=== PATIENT | female | born 1945 | race Caucasian/White ===

== ENCOUNTER 2019-03-21 14:25 | Emergency (ER) | payer MEDICARE, OTHER ==
[~2019-03-21] VITALS: Ht 180.3 cm; Wt 68.0 kg
--- NOTE | 2019-03-21 14:37 | ED General ---
General Stated Complaint: ALLERGIC REACTION History of Present Illness Date Seen by Provider: March 21, 2019 Time Seen by Provider: 14:30 Initial Comments 73-year-old female presents with concerns for an allergic reaction. Patient reports she was at work when it happened. Patient states that she "stating she got some pineapple" on her. They've maybe the patient had on them. She reports that she is "allergic to pineapple" however she does state that she's been blood tests and did not have any allergies. Patient reports she felt like her throat started swelling she had real anxious and or sign of rabies. She reports that when this normally happens she uses her inhaler and it is better. Patient denies any chest pain, nausea, vomiting, headache. Patient states that she feels better now. Patient was given epi, Solu-Medrol and Benadryl in the field by EMS. Allergies and Home Medications Allergies Coded Allergies: coconut (Verified Allergy, Unknown, 03/21/19) pineapple (Verified Allergy, Unknown, 03/21/19) strawberry (Verified Allergy, Unknown, 03/21/19) Patient Home Medication List Home Medication List Reviewed: Yes Review of Systems Review of Systems Constitutional: No chills, No diaphoresis EENTM: see HPI Respiratory: see HPI Cardiovascular: no symptoms reported Gastrointestinal: no symptoms reported Genitourinary: no symptoms reported Musculoskeletal: no symptoms reported Skin: No rash Psychiatric/Neurological: Denies No Symptoms Reported Past Xnfqqui-Mlaugd-Hqezgh Hx Past Med/Social Hx: Reviewed Nursing Past Med/Soc Hx Physical Exam Vital Signs Vital Signs - First Documented 03/21/19 14:39 Temp 96.5 Pulse 87 Resp 18 B/P (MAP) 146/59 (88) O2 Delivery Room Air Capillary Refill : Height, Weight, BMI Height: '" Weight: lbs. oz. kg; BMI Method: General Appearance: No Apparent Distress, WD/WN Eyes: Bilateral Eye Normal Inspection, Bilateral Eye PERRL HEENT: PERRL/EOMI, TMs Normal, Normal ENT Inspection Neck: Full Range of Motion Respiratory: Chest Non Tender, Lungs Clear, Normal Breath Sounds Cardiovascular: Regular Rate, Rhythm, No Edema Gastrointestinal: No Organomegaly Back: No CVA Tenderness Neurologic/Psychiatric: Alert, Oriented x3 Focused Exam Lactate Level 03/21/19 14:35: Lactic Acid Level 1.65 Lactic Acid Level Laboratory Tests Test 03/21/19 14:35 Lactic Acid Level 1.65 MMOL/L (0.50-2.00) Progress/Results/Core Measures Suspected Sepsis SIRS Temperature: Pulse: Respiratory Rate: Laboratory Tests 03/21/19 14:35: White Blood Count 4.9 Blood Pressure / Mean: 03/21/19 14:35: Lactic Acid Level 1.65 Laboratory Tests 03/21/19 14:35: Creatinine 1.11, Platelet Count 194, Total Bilirubin 0.3 Results/Orders Lab Results Laboratory Tests Test 03/21/19 14:35 03/21/19 14:41 Range/Units White Blood Count 4.9 4.3-11.0 10^3/uL Red Blood Count 4.97 4.35-5.85 10^6/uL Hemoglobin 14.6 11.5-16.0 G/DL Hematocrit 47 35-52 % Mean Corpuscular Volume 94 80-99 FL Mean Corpuscular Hemoglobin 29 25-34 PG Mean Corpuscular Hemoglobin Concent 31 L 32-36 G/DL Red Cell Distribution Width 13.7 10.0-14.5 % Platelet Count 194 130-400 10^3/uL Mean Platelet Volume 9.6 7.4-10.4 FL Neutrophils (%) (Auto) 52 42-75 % Lymphocytes (%) (Auto) 35 12-44 % Monocytes (%) (Auto) 12 0-12 % Eosinophils (%) (Auto) 1 0-10 % Basophils (%) (Auto) 0 0-10 % Neutrophils # (Auto) 2.5 1.8-7.8 X 10^3 Lymphocytes # (Auto) 1.7 1.0-4.0 X 10^3 Monocytes # (Auto) 0.6 0.0-1.0 X 10^3 Eosinophils # (Auto) 0.1 0.0-0.3 10^3/uL Basophils # (Auto) 0.0 0.0-0.1 10^3/uL Sodium Level 140 135-145 MMOL/L Potassium Level 4.0 3.6-5.0 MMOL/L Chloride Level 101 98-107 MMOL/L Carbon Dioxide Level 24 21-32 MMOL/L Anion Gap 15 H 5-14 MMOL/L Blood Urea Nitrogen 17 7-18 MG/DL Creatinine 1.11 0.60-1.30 MG/DL Estimat Glomerular Filtration Rate 48 BUN/Creatinine Ratio 15 Glucose Level 126 H 70-105 MG/DL Lactic Acid Level 1.65 0.50-2.00 MMOL/L Calcium Level 8.6 8.5-10.1 MG/DL Corrected Calcium 8.6 8.5-10.1 MG/DL Total Bilirubin 0.3 0.1-1.0 MG/DL Aspartate Amino Transf (AST/SGOT) 19 5-34 U/L Alanine Aminotransferase (ALT/SGPT) 11 0-55 U/L Troponin T 7 <=10 NG/L Total Protein 6.8 6.4-8.2 GM/DL Albumin 4.0 3.2-4.5 GM/DL Glucometer 125 H 70-110 MG/DL My Orders Orders - CHIP THOMPSON DO Cbc With Automated Diff (03/21/19 14:31) Comprehensive Metabolic Panel (03/21/19 14:31) Lactic Acid Analyzer (03/21/19 14:31) Ua Culture If Indicated (03/21/19 14:31) Accucheck Stat ONCE (03/21/19 14:31) Troponin T (03/21/19 14:31) Ekg Tracing (03/21/19 14:31) Hs C Reactive Protein (03/21/19 14:35) Acetaminophen Tablet/Caplet (Tylenol T (03/21/19 15:45) Medications Given in ED Current Medications Medications Dose Ordered Sig/Mary Route Start Time Stop Time Status Last Admin Dose Admin Acetaminophen 650 mg ONCE ONCE PO 03/21/19 15:45 03/21/19 15:46 DC 03/21/19 15:39 650 MG Vital Signs/I&O 03/21/19 14:39 Temp 96.5 Pulse 87 Resp 18 B/P (MAP) 146/59 (88) O2 Delivery Room Air Capillary Refill : Progress Note : Progress Note Patient remained stable with normal vital signs throughout her stay. Patient had no acute findings on EKG or labs. I will discharge patient home in stable condition. She should follow-up with her primary care physician as needed. Return to the ER if symptoms worsen. ECG Initial ECG Impression Date: March 21, 2019 Initial ECG Impression Time: 14:29 Initial ECG Rate: 79 Initial ECG Rhythm: Normal Sinus Initial ECG Intervals: Normal Initial ECG Impression: Nonspecific Changes Departure Impression Primary Impression: Allergic reaction Qualified Codes: T78.40XA - Allergy, unspecified, initial encounter Disposition: HOME, SELF-CARE Condition: Stable Departure-Patient Inst. Patient Instructions: Food Allergy, Anaphylaxis (DC) Work/School Note: Work Release Form Date Seen in the Emergency Department: March 21, 2019 Return to Work: March 23, 2019 CHIP THOMPSON DO March 21, 2019 14:37
[2019-03-21 15:24] LABS: HEMATOCRIT 47 % (35-52); HEMOGLOBIN 14.6 G/DL (11.5-16.0); MEAN CORPUSCULAR HEMOGLOBIN 29 PG (25-34); MEAN CORPUSCULAR HGB CONC 31 G/DL (32-36); MEAN CORPUSCULAR VOLUME 94 FL (80-99); MEAN PLATELET VOLUME 9.6 FL (7.4-10.4); NEUTROPHILS % (AUTO) 52 % (42-75); PLATELET COUNT 194 10^3/uL (130-400); RED CELL DISTRIBUTION WIDTH 13.7 % (10.0-14.5); WHITE BLOOD COUNT 4.9 10^3/uL (4.3-11.0)
[2019-03-21 15:25] LABS: BASOPHILS % (AUTO) 0 % (0-10); EOSINOPHILS # (AUTO) 0.1 10^3/uL (0.0-0.3); EOSINOPHILS % (AUTO) 1 % (0-10); LYMPHOCYTES # (AUTO) 1.7 X 10^3 (1.0-4.0); LYMPHOCYTES % (AUTO) 35 % (12-44); MONOCYTES # (AUTO) 0.6 X 10^3 (0.0-1.0); MONOCYTES % (AUTO) 12 % (0-12); NEUTROPHILS # (AUTO) 2.5 X 10^3 (1.8-7.8)
[2019-03-21 15:34] LABS: BILIRUBIN,TOTAL 0.3 MG/DL (0.1-1.0); CALCIUM 8.6 MG/DL (8.5-10.1); CREATININE SERUM 1.11 MG/DL (0.60-1.30); TOTAL PROTEIN 6.8 GM/DL (6.4-8.2)
[2019-03-21] MEDS ORDERED: ACETAMINOPHEN 325 MG TABLET PO ONE (15:45)
[2019-03-21 16:20] VITALS: BP 123/82
== END 2019-03-21 16:09 | disposition home or self-care (01) ==
LOC: ER FS 14:26
DX: T78.40XA Allergy, unspecified, initial encounter (principal); Z91.018 Allergy to other foods
CPT/HCPCS: 36415; 80053; 82962; 83605; 84484; 85025; 86141; 93005

== ENCOUNTER → 2020-09-21 | Outpatient (CLI) | payer MEDICARE, OTHER | LOC: CARD 10:50 | PROVIDERS: ATTEND Internal Medicine Cardiovascular Disease | DX: E78.2 Mixed hyperlipidemia (principal); I36.1 Nonrheumatic tricuspid (valve) insufficiency; I10 Essential (primary) hypertension; R07.89 Other chest pain | CPT/HCPCS: 93306 ==

== ENCOUNTER → 2020-09-27 | Outpatient (CLI) | payer MEDICARE, OTHER ==
[~2020-09-27] VITALS: Ht 180 cm; Wt 72.0 kg
[~2020-09-27] MED LIST: CATHETER FLUSH 10 ML SYR IV PRN; REGADENOSON 0.4 MG/5 ML SYR (LEXISCAN) IV ONE
[2020-09-27 08:52] VITALS: BP 147/91
--- NOTE | 2020-09-28 08:18 | Cardiology Stress Test Report ---
Stress Test Report Date of Procedure/Referring: Date of Procedure: Sep 27, 2020 PCP Elvin De Dios MD Admitting Physician Indications: Chest pain Baseline Heart Rate: 65 Baseline Blood Pressure: Blood Pressure Systolic: 147 Blood Pressure Diastolic: 91 Baseline Vitals Vital Signs Date Time Temp Pulse Resp B/P (MAP) Pulse Ox O2 Delivery O2 Flow Rate FiO2 09/27/20 08:52 65 147/91 (109) 98 Baseline EKG: Baseline EKG: normal sinus rhythm Summary After explaining the procedure to the patient, she signed a consent and then brought to the stress nuclear laboratory. Patient received 0.4 mg Lexiscan for stress test, ECG, heart rate and blood pressure were monitored continuously. Resting and stress dose of radio tracer were injected, imaging was acquired and reviewed in short axis, horizontal long axis and vertical long axis views. TID: 1.05 SSS: 6 SDS: 6 EF: 70 1. Patient tolerated Lexiscan well 2. Extracardiac attenuation affecting the quality of the images, there is questionable mild decrease uptake at the mid to apical inferior wall and inferoseptum with mild reversibility, probably due to the increased intestinal uptake 3. Normal left ventricular size, normal contractility, EF 70 percent ELVIN DE DIOS MD Sep 28, 2020 08:18
== END ==
LOC: CARD 07:30
PROVIDERS: ATTEND Internal Medicine Cardiovascular Disease
DX: R07.89 Other chest pain (principal); I10 Essential (primary) hypertension; R06.00 Dyspnea, unspecified; E78.2 Mixed hyperlipidemia
CPT/HCPCS: 78452; 93017; A9502

== ENCOUNTER 2020-10-13 09:00 | Day surgery (SDC) | payer MEDICARE, OTHER ==
[2020-10-13] VITALS (14 sets, daily range): BP systolic 118–150; BP diastolic 54–78
[~2020-10-13] VITALS: Ht 180 cm; Wt 73.0 kg
[2020-10-13 07:12] LABS: HEMOGLOBIN 13.4 g/dL (11.5-16.0); MEAN PLATELET VOLUME 9.6 fL (9.0-12.2); WHITE BLOOD COUNT 4.7 10^3/uL (4.3-11.0)
[2020-10-13 07:21] LABS: PROTHROMBIN TIME PATIENT 13.3 SEC (12.2-14.7)
[2020-10-13 07:30] LABS: ALBUMIN 4.1 GM/DL (3.2-4.5); BILIRUBIN,TOTAL 0.4 MG/DL (0.1-1.0); CALCIUM 8.8 MG/DL (8.5-10.1); CREATININE SERUM 1.11 MG/DL (0.60-1.30); POTASSIUM 4.5 MMOL/L (3.6-5.0)
--- NOTE | 2020-10-13 08:09 | Diagnostic Imaging Report ---
Indication: Dyspnea on exertion Findings: The lungs are clear. The heart size is within normal limits. There is no failure pattern, effusion or pneumothorax. IMPRESSION: No acute appearing abnormality. Dictated by: Dictated on workstation # [id number]
[~2020-10-13 09:00] MED LIST changes: +ASCO-262 PO; +ASPI-1238 PO; +C,E,1CAP2 PO; -CATHETER FLUSH 10 ML SYR IV PRN; +HEParin (CATH LAB) 2,000 ML IV ONE; +IBUP-1780 PO; +LIDOCAINE 1% INJ 20 ML 20 ML VIAL ONE; +LISI10TA2 PO; +NS IV 1000 ML 1,000 ML IV SCH; +NS IV 1000 ML 1,000 ML ONE; +PANT40TA52 PO; -REGADENOSON 0.4 MG/5 ML SYR (LEXISCAN) IV ONE; +TEMA30CA PO; +TRAZ150T72 PO; +VNL75T PO
--- NOTE | 2020-10-13 09:20 | NUR ---
SPOKE WITH THE PT (SHE HAD MOST OF HER HOME MEDS) AND CALLED [facility] IN [place] TO COMPLETE THE MED REC LISINOPRIL 10MG WAS LAST FILLED 09-10-2018 #90/90DS- ACCORDING TO THE PT, HAD STOPPED THIS MED DUE TO HER BP DROPPING TO LOW (SHE THINKS IT WAS OVER A YEAR AGO) HOWEVER RECENTLY PTS BP HAD BEEN RUNNING HIGH SO THE PT STARTED TAKING AGAIN. PT SAYS SHE HAS A SCRIPT FOR AN EPI-PEN AND AN ALBUTEROL INHALER, WHEN I CALLED THE PHARMACY THEY HAVE NOT FILLED EITHER OF THESE SINCE 2014. DUE TO THE PAST DUE FILL I DID NOT INCLUDE THESE ON THE MED REC FILL DATES: 07-13-2020 IBUPROFEN 800MG #90 07-19-2020 TRAZODONE 150MG #90/90DS 09-13-2020 VENLAFAXINE 75MG #180/90DS 09-15-2020 TEMAZEPAM 30MG #30/30DS OTC MEDS: OCUVITE VIT C ASPIRIN 81MG
--- NOTE | 2020-10-13 10:25 | Cardiac Procedure Note-CS/ASA ---
Pre-Procedure Note Pre-Op Procedure Note H&P Reviewed The H&P was reviewed, patient examined and no changes noted. Date H&P Reviewed: Oct 13, 2020 Time H&P Reviewed: 10:25 Conscious Sedation Pre-Proced Time 10:25 ASA Score 3 For ASA 3 and 4: Consider anesthesia and medical clearance. Also, for patients with a history of failed moderate sedation consider anesthesia. Airway Lungs Heart ASA score ASA 1: a normal healthy patient ASA 2: a patient with a mild systemic disease (mid diabetes, controlled hypertension, obesity x ASA 3: a patient with a severe systemic disease that limits activity (angina, COPD, prior Myocardial infarction) ASA 4: a patient with an incapacitating disease that is a constant threat to life (CHF, renal failure) ASA 5: a moribund patient not expected to survive 24 hrs. (ruptured aneurysm) ASA 6: a declared brain- patient whose organs are being harvested. For emergent operations, add the letter E after the classification Mallampati Classification Grade 3 Sedation Plan Analgesia, Amnesia, Plan communicated to team members, Discussed options with patient/fam, Discussed risks with patient/fam The patient is an appropriate candidate to undergo the planned procedure, sedation, and anesthesia. The patient immediately re-assessed prior to indication. ELVIN MANDEL MD Oct 13, 2020 10:25
[2020-10-13] MEDS ORDERED: NITRO DRIP 25000 MCG/D5W 250 ML IV ONE (11:29)
[2020-10-13] MEDS ORDERED: VERAPAMIL 5 MG/2 ML (CALAN) VIAL IV ONE (11:29)
[2020-10-13] MEDS ORDERED: MIDAZOLAM 5 MG/5 ML (VERSED) VIAL ONE (11:29)
[2020-10-13] MEDS ORDERED: HEParin 1000 UNIT/ML (10ML VIAL) FOR BOLUS ONE (11:29)
[2020-10-13] MEDS ORDERED: fentaNYL INJECTION 100 MCG/2 ML AMP ONE (11:29)
[2020-10-13] MEDS ORDERED: ASPIRIN 325 MG (5 GR) TABLET ONE (12:36)
[2020-10-13] MEDS ORDERED: TICAGRELOR 90 MG TABLET (BRILINTA) PO ONE (12:36)
[2020-10-13] MEDS ORDERED: PANTOPRAZOLE 40 MG (PROTONIX) TAB PO PRN (12:45)
--- NOTE | 2020-10-13 12:46 | Cardiac Cath Report ---
Cardiac Cath Report Physician (s)/Optical Systems Engineer (s) Physician ELVIN MANDEL MD Pre-Procedure Diagnosis Pre-Procedure Diagnosis: coronary artery disease Post-Procedure Note Procedure Start Date: Oct 13, 2020 Name of Procedure: Left heart catheterization Stent to the LAD Findings/Procedure Note PROCEDURE NOTE: 75-year-old lady with history of hypertension, hyperlipidemia, had an abnormal stress test with anterior wall ischemia, scheduled for cardiac catheterization. After explaining the procedure to the patient, all pros and cons were explained, all questions were answered. The patient signed the consent and then she was placed on the cardiac catheterization laboratory. Groin was prepped SL fashion local anesthesia was used. Sheath placed in the right radial artery, [place] catheter was advanced to the left ventricular cavity, left ventriculogram was done back with measuring the pressure to the aortotomy advanced in the left main coronary artery and angiogram was done then turned to the right coronary artery and angiogram to the right coronary system was done. Next Patient has severe stenosis in the mid LAD. Attempts to intubate with a EBU guide, I used FL 3.5, advanced to the left main then advanced a wire through the LAD. Primary stenting using Peggy 2.5 x 18 mm expanded to 2.65 mm with excellent results. Postintervention angiogram showed no complication At the end of the procedure the sheath was removed. Vascular band was used FINDINGS: Hemodynamics LV 99/7, end-diastolic pressure of 7 Aorta 95/50 mean of 67 ANATOMY: Left Main is free of obstructive disease Left Anterior Descending has 70-80 percent mid LAD stenosis successful primary stenting using Peggy 2.5 x 18 mm expanded to 2.65 mm with excellent results Left Circumflex has mild to moderate disease nonobstructive disease Right Coronory Artery has moderate disease in the midportion nonobstructive disease LV Gram was not done, pressure was measured CONCLUSION: 1. Severe mid LAD stenosis successful primary stenting using Peggy 2.5 x 18 mm expanded to 2.65 mm with excellent results 2. Moderate stenosis in the mid right coronary artery nonobstructive disease, mild disease in the circumflex system 3. Normal left ventricular end-diastolic pressure DISCUSSION AND RECOMMENDATION: Patient was started on aspirin and Brilinta. Continue to maximize medical therapy, added Lipitor due to hyperlipidemia Anesthesia Type: Conscious Sedation Estimated blood loss (mL): 25 ml Contrast Amount: 80 ml Total Radiation Dose: 306 mGy Post-Procedure Diagnosis Post-operative diagnosis: Chest pain Coronary artery disease Hypertension Hyperlipidemia ELVIN MANDEL MD Oct 13, 2020 12:46
[2020-10-13] MEDS: NS IV 1000 ML 1,000 ML IV SCH (13:00)
[2020-10-13] MEDS: TICAGRELOR 90 MG TABLET (BRILINTA) PO SCH (20:01)
[2020-10-13] MEDS: VENlafaxine 75 MG (EFFEXOR) TAB PO SCH (20:01)
[2020-10-13] MEDS ORDERED: traZODone 150 MG (DESYREL) TABLET PO SCH (21:00)
[2020-10-13] MEDS ORDERED: TEMAZEPAM 15 MG (RESTORIL) CAP PO SCH (21:00)
[2020-10-13] MEDS ORDERED: ASPIRIN E.C. 81 MG (ECOTRIN) TAB PO SCH (21:00)
[2020-10-14] VITALS: BP 137/78
[2020-10-14] MEDS: NS IV 1000 ML 1,000 ML IV SCH ×2 (01:36→08:40)
[2020-10-14 03:33] LABS: HEMOGLOBIN 12.6 g/dL (11.5-16.0); MEAN PLATELET VOLUME 9.7 fL (9.0-12.2); WHITE BLOOD COUNT 5.3 10^3/uL (4.3-11.0)
[2020-10-14 03:47] LABS: ALBUMIN 3.4 GM/DL (3.2-4.5); POTASSIUM 4.5 MMOL/L (3.6-5.0)
[2020-10-14 03:51] LABS: BILIRUBIN,TOTAL 0.5 MG/DL (0.1-1.0)
[2020-10-14 03:53] LABS: CREATININE SERUM 1.13 MG/DL (0.60-1.30)
[2020-10-14 04:00] VITALS: BP 125/72
[2020-10-14 08:00] VITALS: BP 118/65
[2020-10-14] MEDS ORDERED: lisINopril 10 MG (PRINIVIL) TABLET PO SCH (09:00)
[2020-10-14] MEDS: TICAGRELOR 90 MG TABLET (BRILINTA) PO SCH ×2 (09:00→11:00)
[2020-10-14] MEDS: VENlafaxine 75 MG (EFFEXOR) TAB PO SCH (09:05)
--- NOTE | 2020-10-14 09:09 | Cardiology Progress Note ---
Subjective Date Seen by Provider: Oct 14, 2020 Time Seen by Provider: 09:47 Subjective/Events-last exam Patient is laying down in bed, feeling well. No chest pain. Catheterization site is healing well Review of Systems General: No Chills, No Night Sweats, No Fatigue, No Malaise, No Appetite, No Other HEENT: No Head Aches, No Visual Changes, No Eye Pain, No Ear Pain, No Dysphasia, No Sinus Congestion, No Post Nasal Drip, No Sore Throat, No Other Pulmonary: No Dyspnea, No Cough, No Pleuritic Chest Pain, No Other Cardiovascular: No: Chest Pain, Palpitations, Orthopnea, Paroxysmal Noc. Dyspnea, Edema, Lt Headedness, Other Objective-Cardiology Exam Last Set of Vital Signs Vital Signs Capillary Refill : Less Than 3 Seconds I&O Intake and Output 10/14/20 00:00 Intake Total 1500 ml Balance 1500 ml Intake Oral 500 ml IV Total 1000 ml # Voids 2 General: Alert, Oriented X3, Cooperative HEENT: Atraumatic, PERRLA Neck: Supple, No JVD, No Thyromegaly Lungs: Clear to Auscultation, Normal Air Movement Heart: Regular Rate, Normal S1, Normal S2, No Murmurs Abdomen: Normal Bowel Sounds, Soft, No Tenderness, No Hepatosplenomegaly, No Ma sses Extremities: No Clubbing, No Cyanosis, No Edema, Normal Pulses, No Tender ness/Swelling Skin: No Rashes, No Breakdown, No Significant Lesion Neuro: Normal Gait, Normal Speech, Strength at 5/5 X4 Ext, Normal Tone, Sensation Intact Psych/Mental Status: Mental Status NL, Mood NL Results Lab Laboratory Tests 10/14/20 02:58 A/P-Cardiology Admission Diagnosis Coronary artery disease Hypertension Hyperlipidemia Assessment/Plan Coronary artery disease, status post stenting to LAD, educated on taking aspirin and Brilinta next 1. Severe mid LAD stenosis successful primary stenting using Peggy 2.5 x 18 mm expanded to 2.65 mm with excellent results 2. Moderate stenosis in the mid right coronary artery nonobstructive disease, mild disease in the circumflex system 3. Normal left ventricular end-diastolic pressure Hypertension, continue to monitor blood pressure next Hyperlipidemia, on Lipitor, monitor lipids ELVIN MANDEL MD Oct 14, 2020 9:09 am
[2020-10-14] MEDS ORDERED: ATOR10TA66 PO (09:11)
[2020-10-14] MEDS ORDERED: TICA90TA PO (09:11)
--- NOTE | 2020-10-14 09:11 | Discharge Inst-Post CATH ---
Discharge Inst-CATH/EP Problems Reviewed?: Yes Post Cardiac Cath/EP D/C Inst Follow Up/Plan Appointment with Dr. MANDEL's office in 2 weeks <b>CARDIAC CATH/EP PROCEDURE DISCHARGE INSTRUCTIONS</b> ACTIVITY * Go Home directly and rest. * Limit activity of the leg (or wrist if it was used) for 7 days including aerobics, swimming, jogging, bicycling, etc. * Restrict stair-climbing for 7 days if possible, if not, climb up with your non-cath leg, then bring together on the same step. * Avoid lifting, pushing, pulling or excessive movement of the affected extremity for 7 days. * Customary sexual activity may be resumed after 2 days-use caution not to use a position that strains or causes pain to the affected extremity. * No driving for 24 hours. * NO SMOKING. * Avoid straining for bowel movements for 7 days. * Gentle walking on level ground is allowed. * Returning to work will depend on the type of procedure and the results. Your doctor will discuss this with you. CALL YOUR DOCTOR FOR ANY OF THE FOLLOWING: *If bleeding from the puncture site occurs- Apply gentle pressure to site with clean cloth and call your doctor or EMS. * If a knot or lump forms under the skin, increases in size, or causes pain. * If bruising appears to be worsening or moving further down your leg instead of disappearing. * Temperature above 101 F. CARE OF YOUR GROIN INCISION; * Bruising or purple discoloration of the skin near the puncture site is common. * You may shower only, no bathtub bathing for 5 days. Be careful to avoid slipping as your leg may feel stiff. * If a closure device was used on your femoral artery, please see the attached guide regarding care of the device and your leg. * Leave dressing on FOR 24 hours. CARE OF YOUR WRIST INCISION; * Bruising or purple discoloration of the skin near the puncture site is common. * You may shower. * DO NOT submerge wrist. * Leave dressing on FOR 24 hours. ELVIN MANDEL MD Oct 14, 2020 9:11 am
== END 2020-10-14 12:00 | disposition home or self-care (01) ==
LOC: CATH 09:00 → CSD 13:27 → CATH 10-14 12:00
PROVIDERS: ATTEND Internal Medicine Cardiovascular Disease
DX: I25.10 Atherosclerotic heart disease of native coronary artery without angina pectoris (principal); I10 Essential (primary) hypertension; E78.2 Mixed hyperlipidemia; I65.23 Occlusion and stenosis of bilateral carotid arteries; R94.39 Abnormal result of other cardiovascular function study; Z79.899 Other long term (current) drug therapy; Z79.82 Long term (current) use of aspirin
CPT/HCPCS: 71045; 80053 ×2; 80061; 85027 ×2; 85610; 85730; 87081; 93458; C1769; C1874; C1887 ×2; C1894; C9600; 36415; 93005

== ENCOUNTER 2020-11-25 14:56 | Observation (INO) | payer MEDICARE, OTHER ==
[~2020-11-25] VITALS: Ht 180.3 cm; Wt 71.3 kg
[2020-11-25] VITALS (10 sets, daily range): BP systolic 96–139; BP diastolic 56–87
[~2020-11-25 14:56] MED LIST changes: +ATOR10TA66 PO; -HEParin (CATH LAB) 2,000 ML IV ONE; -LIDOCAINE 1% INJ 20 ML 20 ML VIAL ONE; -NS IV 1000 ML 1,000 ML IV SCH; -NS IV 1000 ML 1,000 ML ONE; +TICA90TA PO
[2020-11-25] MEDS ORDERED: ASPIRIN 81 MG CHEW (CHILDREN'S ASA) PO STA (15:23)
[2020-11-25] MEDS ORDERED: ONDANSETRON 4 MG/2 ML (SDV) Z0FRAN IVP ONE (15:30)
[2020-11-25] MEDS ORDERED: NS IV 1000 ML 1,000 ML IV SCH (15:30)
[2020-11-25] MEDS ORDERED: fentaNYL INJECTION 100 MCG/2 ML AMP IVP ONE (15:30)
--- NOTE | 2020-11-25 15:38 | ED Chest Pain ---
General Chief Complaint: Chest Pain Stated Complaint: SHOULDER BLADE PAIN;NAUSEA Source: patient History of Present Illness Date Seen by Provider: Nov 25, 2020 Time Seen by Provider: 15:08 Initial Comments 75-year-old female presenting with substernal chest pain going into her back. She states that this feels similar to when she had to have stents placed No . She also has some mild nausea with this. It started around noon is been off and on since then. She states that she was working at [email or web address] when this started. She was not doing anything strenuous or different than normal. She has not missed any doses of her medications. She does not feel any different with exertion or movement. Rest did not seem to make a difference the pain either. Allergies and Home Medications Allergies Coded Allergies: coconut (Verified Allergy, Unknown, 03/21/19) pineapple (Verified Allergy, Unknown, 03/21/19) strawberry (Verified Allergy, Unknown, 03/21/19) Home Medications Ascorbate Calcium 500 Mg Tablet, 500 MG PO DAILY, (Reported) Aspirin 81 Mg Tablet.dr, 81 MG PO HS, (Reported) Atorvastatin Calcium 10 Mg Tablet, 10 MG PO HS Prescribed by: ELVNI MANDEL on 10/14/20910 C,E,Zinc,Copper 24/Om3/Lut/Katie 1 Each Capsule, 1 EACH PO DAILY, (Reported) Ibuprofen 800 Mg Tablet, 800 MG PO TID PRN for PAIN-MILD, (Reported) Lisinopril 10 Mg Tablet, 10 MG PO DAILY, (Reported) LAST FILLED 09-10-2018 #90/90 DAY SUPPLY Pantoprazole Sodium 40 Mg Tablet.dr, 40 MG PO DAILY PRN for HEARTBURN, (Reported) Temazepam 30 Mg Capsule, 30 MG PO HS, (Reported) Ticagrelor 90 Mg Tablet, 90 MG PO BID Prescribed by: ELVIN MANDEL on 10/14/20 09 Trazodone HCl 150 Mg Tablet, 150 MG PO HS, (Reported) Venlafaxine HCl 75 Mg Tab, 75 MG PO BID, (Reported) Patient Home Medication List Home Medication List Reviewed: Yes Review of Systems Review of Systems Constitutional: No chills, No fever EENTM: No Symptoms Reported Respiratory: No Symptoms Reported Cardiovascular: See HPI Gastrointestinal: See HPI Genitourinary: No Symptoms Reported Musculoskeletal: no symptoms reported Skin: no symptoms reported Psychiatric/Neurological: Denies Headache, Denies Numbness, Denies Paresthesia Past Rzqwxhz-Lrtshl-Xftidg Hx Past Med/Social Hx: Reviewed Nursing Past Med/Soc Hx Patient Social History Type Used: Cigarettes 2nd Hand Smoke Exposure: No Recent Foreign Travel: No Contact w/Someone Who Travel: No Recent Hopitalizations: No Immunizations Up To Date Date of Pneumonia Vaccine: Mar 13, 2020 Date of Influenza Vaccine: Mar 13, 2020 Seasonal Allergies Seasonal Allergies: No Past Medical History Surgeries: Yes (CONE SECTION 1974, ARMS BILAT CARPAL TUNNEL) Respiratory: No Currently Using CPAP: No Currently Using BIPAP: No Cardiac: No High Cholesterol, Hypertension Neurological: Yes Vertigo Genitourinary: No Gastrointestinal: No Musculoskeletal: Yes (CARPAL TUNNEL) Endocrine: No HEENT: No Cancer: No Psychosocial: Yes Anxiety Blood Disorders: No Physical Exam Vital Signs Vital Signs - First Documented 11/25/20 15:00 Temp 36.5 Pulse 79 Resp 18 B/P (MAP) 101/54 (70) Pulse Ox 99 O2 Delivery Room Air Capillary Refill : Height, Weight, BMI Height: 5'11.00" Weight: 150lbs. oz. 68.075695om; 22.53 BMI Method:Stated General Appearance: No Apparent Distress, WD/WN HEENT: PERRL/EOMI, Normal ENT Inspection Neck: Full Range of Motion, Normal Inspection, Non Tender, Supple; No Carotid Bruit Respiratory: Chest Non Tender, Lungs Clear, Normal Breath Sounds, No Accessory Muscle Use, No Respiratory Distress Cardiovascular: Regular Rate, Rhythm, Normal Peripheral Pulses Gastrointestinal: Normal Bowel Sounds, No Pulsatile Mass, Non Tender, Soft Extremity: Normal Capillary Refill, No Pedal Edema Neurologic/Psychiatric: Alert, Oriented x3 Skin: Warm/Dry Progress/Results/Core Measures Results/Orders Lab Results Laboratory Tests Test 11/25/20 15:21 Range/Units White Blood Count 6.2 4.3-11.0 10^3/uL Red Blood Count 4.37 4.35-5.85 10^6/uL Hemoglobin 13.2 11.5-16.0 G/DL Hematocrit 41 35-52 % Mean Corpuscular Volume 93 80-99 FL Mean Corpuscular Hemoglobin 30 25-34 PG Mean Corpuscular Hemoglobin Concent 33 32-36 G/DL Red Cell Distribution Width 14.3 10.0-14.5 % Platelet Count 309 130-400 10^3/uL Mean Platelet Volume 9.4 7.4-10.4 FL Immature Granulocyte % (Auto) 0 % Neutrophils (%) (Auto) 67 42-75 % Lymphocytes (%) (Auto) 21 12-44 % Monocytes (%) (Auto) 11 0-12 % Eosinophils (%) (Auto) 0 0-10 % Basophils (%) (Auto) 0 0-10 % Neutrophils # (Auto) 4.2 1.8-7.8 X 10^3 Lymphocytes # (Auto) 1.3 1.0-4.0 X 10^3 Monocytes # (Auto) 0.7 0.0-1.0 X 10^3 Eosinophils # (Auto) 0.0 0.0-0.3 10^3/uL Basophils # (Auto) 0.0 0.0-0.1 10^3/uL Immature Granulocyte # (Auto) 0.0 0.0-0.1 10^3/uL Prothrombin Time 13.0 12.2-14.7 SEC INR Comment 1.0 0.8-1.4 Activated Partial Thromboplast Time 28 24-35 SEC Sodium Level 139 135-145 MMOL/L Potassium Level 4.0 3.6-5.0 MMOL/L Chloride Level 102 98-107 MMOL/L Carbon Dioxide Level 24 21-32 MMOL/L Anion Gap 13 5-14 MMOL/L Blood Urea Nitrogen 19 H 7-18 MG/DL Creatinine 1.24 0.60-1.30 MG/DL Estimat Glomerular Filtration Rate 42 BUN/Creatinine Ratio 15 Glucose Level 105 70-105 MG/DL Calcium Level 9.4 8.5-10.1 MG/DL Corrected Calcium 9.1 8.5-10.1 MG/DL Magnesium Level 2.1 1.6-2.4 MG/DL Total Bilirubin 0.5 0.1-1.0 MG/DL Aspartate Amino Transf (AST/SGOT) 19 5-34 U/L Alanine Aminotransferase (ALT/SGPT) 10 0-55 U/L Alkaline Phosphatase 72 40-136 U/L Troponin I 0.30 <0.30 NG/ML Pro-B-Type Natriuretic Peptide 114.1 H <75.0 PG/ML Total Protein 7.3 6.4-8.2 GM/DL Albumin 4.4 3.2-4.5 GM/DL Lipase 33 8-78 U/L My Orders Orders - DEWAYNE DEL RIO MD Cbc With Automated Diff (11/25/20 15:12) Magnesium (11/25/20 15:12) Chest 1 View Ap/Pa Only (11/25/20 15:12) Ekg Tracing (11/25/20 15:12) Comprehensive Metabolic Panel (11/25/20 15:12) Protime With Inr (11/25/20 15:12) Partial Thromboplastin Time (11/25/20 15:12) Monitor-Rhythm Ecg Trace Only (11/25/20 15:12) Ed Iv/Invasive Line Start (11/25/20 15:12) Lipase (11/25/20 15:12) Troponin I Fs (11/25/20 15:12) Probnp Fs (11/25/20 15:12) Ns Iv 1000 Ml (Sodium Chloride 0.9%) (11/25/20 15:30) Fentanyl Injection (Sublimaze Injection (11/25/20 15:30) Ondansetron Injection (Zofran Injectio (11/25/20 15:30) Aspirin Chewable Tablet (Baby Aspirin Ch (11/25/20 15:23) Fentanyl Injection (Sublimaze Injection (11/25/20 16:19) Metoprolol Succinate (Xl) Tab (Toprol Xl (11/25/20 17:29) Medications Given in ED Current Medications Medications Dose Ordered Sig/Mary Route Start Time Stop Time Status Last Admin Dose Admin Fentanyl Citrate 25 mcg ONCE ONCE IVP 11/25/20 15:30 11/25/20 15:31 DC 11/25/20 15:30 25 MCG Ondansetron HCl 4 mg ONCE ONCE IVP 11/25/20 15:30 11/25/20 15:31 DC 11/25/20 15:30 4 MG Vital Signs/I&O 11/25/20 11/25/20 11/25/20 15:00 15:49 17:20 Temp 36.5 36.2 Pulse 79 90 Resp 18 18 B/P (MAP) 101/54 (70) 125/70 Pulse Ox 99 98 O2 Delivery Room Air Room Air Room Air Progress Progress Note #1: Progress Note initial electrocardiogram does not show any acute significant abnormality compared to her prior tracing. 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 Will give aspirin here and check labs as well as chest x-ray. Give IV fluids to help with her borderline low blood pressure. Give fentanyl 25 g anytime as needed for chest pain. Progress Note #2: Progress Note on recheck her pain was down to 2 or 3 after the initial treatment. Her labs appeared stable without acute significant abnormality. Her initial troponin was <0.3. CXR is clear of acute process. Will repeat Fentanyl 25 mcg and check with [facility] and Cardiology about admit for cardiac rule out with her having complaint of pain similar to Oct 13, 2020. Progress Note #3: Time: 16:56 Progress Note discussed with Dr. Workman for the [facility] service and she was agreeable to admitting the patient overnight for observation to do serial cardiac enzymes. She did request having cardiology be where the patient make sure that he was okay with the admission as well. At [address] Coleman for cardiology and he stated he would see the patient in consult and to make sure she had aspirin, beta sam and blood thinner ordered. Will add on a dose of metoprolol 25 mg, continue brilinta and aspirin. Initial ECG Impression Date: Nov 25, 2020 Initial ECG Impression Time: 15:07 Initial ECG Rate: 77 Initial ECG Rhythm: Normal Sinus Comment normal sinus rhythm with a heart rate of [address] interval [address] elevation. QT interval 402 ms with a QTc interval 455 ms. Appears similar to tracing from 2019. Diagnostic Imaging Diagonstic Imaging: Xray Plain Films/CT/US/NM/MRI: chest Comments [facility] [place], [place] NAME: HALINA NGUYEN [facility] REC#: [id number] PT STATUS: REG ER : 1945 PHYSICIAN: DEWAYNE DEL RIO MD ADMIT DATE: 11/25/20/ER FS Signed Date of Exam:11/25/20 CHEST 1 VIEW AP/PA ONLY INDICATION: chest pain COMPARISON: 10/13/2020 FINDINGS: Single frontal view of the chest demonstrates normal heart size and pulmonary vascularity. The lungs are well aerated and clear. No large pleural effusion or pneumothorax is seen. The visualized osseous structures show no acute abnormalities. IMPRESSION: 1. No acute cardiopulmonary process. Dictated by: Dictated on workstation # [id number] Dict: 11/25/20 1600 Trans: 11/25/20 1630 CVB [id number] Interpreted by: JOSE CHRISTENSEN MD Electronically signed by: JOSE CHRISTENSEN MD 11/25/20 1630 Departure Communication (Admissions) Time/Spoke to Admitting Phy: 16:56 D/w Dr. Workman and she was willing to take pt for cardiac rule out but wanted to make sure the hotel operation manager was aware and see if they are ok with it. Time/Spoke to Consulting Phy: 17:02 D/w Dr. Coleman for cardiology and he was agreeable to having the pt get a cardiac rule out. He wanted to make sure she continues on aspirin, brilinta, beta sam. Impression Primary Impression: Substernal chest pain Disposition: 30 STILL A PATIENT Condition: Stable Admissions Decision to Admit Reason: Admit from ER (General) Decision to Admit/Date: Nov 25, 2020 Time/Decision to Admit Time: 16:56 Departure-Patient Inst. Referrals: NO,LOCAL PHYSICIAN (PCP/Family) Primary Care Physician DEWAYNE DEL RIO MD Nov 25, 2020 15:38
[2020-11-25 16:00] LABS: BILIRUBIN,TOTAL 0.5 MG/DL (0.1-1.0); CALCIUM 9.4 MG/DL (8.5-10.1); CREATININE SERUM 1.24 MG/DL (0.60-1.30); MAGNESIUM 2.1 MG/DL (1.6-2.4)
[2020-11-25 16:01] LABS: ALBUMIN 4.4 GM/DL (3.2-4.5); TOTAL PROTEIN 7.3 GM/DL (6.4-8.2)
--- NOTE | 2020-11-25 16:02 | Diagnostic Imaging Report ---
INDICATION: chest pain COMPARISON: 10/13/2020 FINDINGS: Single frontal view of the chest demonstrates normal heart size and pulmonary vascularity. The lungs are well aerated and clear. No large pleural effusion or pneumothorax is seen. The visualized osseous structures show no acute abnormalities. IMPRESSION: 1. No acute cardiopulmonary process. Dictated by: Dictated on workstation # [id number]
[2020-11-25] MEDS ORDERED: fentaNYL INJECTION 100 MCG/2 ML AMP IVP STA (16:19)
[2020-11-25 16:40] LABS: WHITE BLOOD COUNT 6.2 10^3/uL (4.3-11.0)
[2020-11-25 16:41] LABS: HEMATOCRIT 41 % (35-52); HEMOGLOBIN 13.2 G/DL (11.5-16.0); MEAN CORPUSCULAR HEMOGLOBIN 30 PG (25-34); MEAN CORPUSCULAR HGB CONC 33 G/DL (32-36); MEAN CORPUSCULAR VOLUME 93 FL (80-99); PLATELET COUNT 309 10^3/uL (130-400)
[2020-11-25 16:42] LABS: BASOPHILS % (AUTO) 0 % (0-10); EOSINOPHILS % (AUTO) 0 % (0-10); LYMPHOCYTES # (AUTO) 1.3 X 10^3 (1.0-4.0); LYMPHOCYTES % (AUTO) 21 % (12-44); MEAN PLATELET VOLUME 9.4 FL (7.4-10.4); MONOCYTES # (AUTO) 0.7 X 10^3 (0.0-1.0); MONOCYTES % (AUTO) 11 % (0-12); NEUTROPHILS # (AUTO) 4.2 X 10^3 (1.8-7.8); NEUTROPHILS % (AUTO) 67 % (42-75)
--- NOTE | 2020-11-25 18:12 | NUR ---
ATEMPTED REPORT, NO ANSWER.
--- NOTE | 2020-11-25 19:20 | NUR ---
HALINA NGUYEN admitted to room 417-1, with an admitting diagnosis of CP, on 11/25/20 from ED via EMS, accompanied by STAFF.HALINA NGUYEN introduced to surroundings, call light, bed controls, phone, TV, temperature control, lights, meal times, smoking policy, visitor policy, side rail policy, bathrooms and showers. Patient Rights given to patient in the handbook. HALINA NGUYEN verbalizes understanding that [facility] is not responsible for the loss or damage to any personal effects or valuables that are kept in the patients posession during their hospitalization. The following HALINA NGUYEN verbalizes understanding of Interdisciplinary Patient Education. Patient and/or family were informed about the Rapid Response Team and its purpose.
[2020-11-25] MEDS ORDERED: morphine INJ 4 MG/ML 1 ML (VIAL/SYRINGE) IV PRN (19:30)
[2020-11-25] MEDS ORDERED: CATHETER FLUSH 10 ML SYR IV PRN (19:30)
[2020-11-25] MEDS ORDERED: NITROGLYCERIN 0.4 MG SL TABS BTL 25'S SL PRN (19:30)
[2020-11-25] MEDS ORDERED: ONDANSETRON 4 MG/2 ML (SDV) Z0FRAN IVP PRN (19:30)
[2020-11-25] MEDS: NS IV 1000 ML 1,000 ML IV SCH (20:40)
[2020-11-25] MEDS: TICAGRELOR 90 MG TABLET (BRILINTA) PO SCH (20:40)
[2020-11-26] VITALS: BP 97/58
[2020-11-26 04:00] VITALS: BP 96/54
[2020-11-26 05:37] LABS: TRIGLYCERIDES 77 MG/DL (<150); VLDL CHOLESTEROL 15 MG/DL (5-40)
[2020-11-26 05:42] LABS: CHOLESTEROL 134 MG/DL (< 200)
[2020-11-26 05:43] LABS: HDL CHOLESTEROL 63 MG/DL (40-60)
[2020-11-26 08:00] VITALS: BP 117/69
[2020-11-26] MEDS ORDERED: ASPIRIN E.C. 81 MG (ECOTRIN) TAB PO SCH (09:00)
--- NOTE | 2020-11-26 09:17 | History & Physical ---
LORNE MARTE III MED STUDENT 11/26/20 0917: History of Present Illness History of Present Illness Reason for visit/HPI Pt is a 75 yo female w/ known history of CAD s/p stent placement in LAD, HTN, and HLD who presented to the ER on 11/25/20 due to worsening chest pain. She describes the pain as a sharp, stabbing pain rated 10/10 on pain at its most severe. She notes that is started in her midscapular area and radiated towards her chest, but not to neck or shoulders. She endorsed shortness of breath, diaphoresis, nausea and weakness when it was at its max pain. She relates this to similar pain she experience prior to receiving a stent in her LAD on 10/13/20 for severe stenosis. 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 She is unsure if it was related to her heart or more anxiety related. The pain lasted for about 6 hours, though the severity of the pain decreased once she was in the ER and getting fentanyl patches. Today, she states that she no longer feels any chest pain or shortness of breath. still feeling nauseous, but again unsure if this could be related to anxiety or not. She wants to know what she can do to prevent this from happening again Date of Admission Nov 25, 2020 at 19:03 Date Seen by a Provider: Nov 26, 2020 Time Seen by a Provider: 09:45 I consulted on this patient on 11/26/20 09:11 Attending Physician Ta Workman MD Admitting Physician Shreyas Abbott MD Consult Allergies and Home Medications Allergies Coded Allergies: coconut (Verified Allergy, Unknown, 03/21/19) pineapple (Verified Allergy, Unknown, 03/21/19) strawberry (Verified Allergy, Unknown, 03/21/19) Home Medications Acetaminophen 500 Mg Tablet, 1,000 MG PO Q6H PRN for PAIN-MILD (1-4), (Reported) Ascorbate Calcium 500 Mg Tablet, 500 MG PO DAILY, (Reported) Aspirin 81 Mg Tablet.dr, 81 MG PO DAILY, (Reported) Atorvastatin Calcium 10 Mg Tablet, 10 MG PO HS, (Reported) C,E,Zinc,Copper 24/Om3/Lut/Katie 1 Each Capsule, 1 EACH PO DAILY, (Reported) Lisinopril 10 Mg Tablet, 10 MG PO HS, (Reported) LAST FILLED 09-10-2018 #90/90 DAY SUPPLY Pantoprazole Sodium 40 Mg Tablet.dr, 40 MG PO DAILY PRN for HEARTBURN, (Reporte d) Temazepam 30 Mg Capsule, 30 MG PO HS, (Reported) Ticagrelor 90 Mg Tablet, 90 MG PO DAILY, (Reported) Trazodone HCl 150 Mg Tablet, 150 MG PO HS, (Reported) Venlafaxine HCl 75 Mg Tab, 75 MG PO BID, (Reported) Patient Home Medication List Home Medication List Reviewed: Yes Past Srmhbpp-Uclqsl-Omdggc Hx Patient Social History Number of Children: 1 Number of living children: 0 Employed/Student: employed Alcohol Use: Denies Use Recreational Drug Use: Yes Drug of Choice: meth Smoking Status: Current Everyday Smoker Type Used: Cigarettes 2nd Hand Smoke Exposure: No Recent Foreign Travel: No Contact w/other who traveled: No Recent Hopitalizations: No Recent Infectious Disease Expo: No Immunizations Up To Date Date of Pneumonia Vaccine: Mar 13, 2020 Date of Influenza Vaccine: Mar 13, 2021 Seasonal Allergies Seasonal Allergies: No Surgeries Yes (CONE SECTION 1974, ARMS BILAT CARPAL TUNNEL) Respiratory No Currently Using CPAP: No Currently Using BIPAP: No Cardiovascular Yes Coronary Artery Disease (stent placement in LAD 10/13/2020), High Cholesterol, Hypertension Neurological Yes Vertigo Genitourinary No Gastrointestinal No Musculoskeletal Yes (CARPAL TUNNEL) Endocrine History of Endocrine Disorders: No HEENT History of HEENT Disorders: No Cancer No Psychosocial History of Psychiatric Problem: Yes Behavioral Health Disorders: Anxiety Integumentary History of Skin or Integumenta: No Blood Transfusions History of Blood Disorders: No Family Medical History Significant Family History: Heart Disease (noted arrythmia in her brother) Review of Systems Constitutional: see HPI; No diaphoresis, No dizziness, No fever, No malaise, No weakness EENTM: no symptoms reported Respiratory: see HPI Cardiovascular: see HPI Gastrointestinal: no symptoms reported Genitourinary: no symptoms reported Musculoskeletal: no symptoms reported Skin: no symptoms reported Psychiatric/Neurological: Anxiety (anxious about heart problems) Physical Exam Vital Signs Vital Signs - First Documented 11/25/20 15:00 Temp 36.5 Pulse 79 Resp 18 B/P (MAP) 101/54 (70) Pulse Ox 99 O2 Delivery Room Air Capillary Refill : Less Than 3 Seconds Height, Weight, BMI Height: 5'11.00" Weight: 150lbs. oz. 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 Norm as Tested Skin: Normal Color, Warm/Dry Comments Laboratory Tests 11/25/20 15:21 Laboratory Tests Test 11/25/20 15:21 11/25/20 19:50 11/26/20 05:00 Range/Units White Blood Count 6.2 4.3-11.0 10^3/uL Red Blood Count 4.37 4.35-5.85 10^6/uL Hemoglobin 13.2 11.5-16.0 G/DL Hematocrit 41 35-52 % Mean Corpuscular Volume 93 80-99 FL Mean Corpuscular Hemoglobin 30 25-34 PG Mean Corpuscular Hemoglobin Concent 33 32-36 G/DL Red Cell Distribution Width 14.3 10.0-14.5 % Platelet Count 309 130-400 10^3/uL Mean Platelet Volume 9.4 7.4-10.4 FL Immature Granulocyte % (Auto) 0 % Neutrophils (%) (Auto) 67 42-75 % Lymphocytes (%) (Auto) 21 12-44 % Monocytes (%) (Auto) 11 0-12 % Eosinophils (%) (Auto) 0 0-10 % Basophils (%) (Auto) 0 0-10 % Neutrophils # (Auto) 4.2 1.8-7.8 X 10^3 Lymphocytes # (Auto) 1.3 1.0-4.0 X 10^3 Monocytes # (Auto) 0.7 0.0-1.0 X 10^3 Eosinophils # (Auto) 0.0 0.0-0.3 10^3/uL Basophils # (Auto) 0.0 0.0-0.1 10^3/uL Immature Granulocyte # (Auto) 0.0 0.0-0.1 10^3/uL Prothrombin Time 13.0 12.2-14.7 SEC INR Comment 1.0 0.8-1.4 Activated Partial Thromboplast Time 28 24-35 SEC Sodium Level 139 135-145 MMOL/L Potassium Level 4.0 3.6-5.0 MMOL/L Chloride Level 102 98-107 MMOL/L Carbon Dioxide Level 24 21-32 MMOL/L Anion Gap 13 5-14 MMOL/L Blood Urea Nitrogen 19 H 7-18 MG/DL Creatinine 1.24 0.60-1.30 MG/DL Estimat Glomerular Filtration Rate 42 BUN/Creatinine Ratio 15 Glucose Level 105 70-105 MG/DL Calcium Level 9.4 8.5-10.1 MG/DL Corrected Calcium 9.1 8.5-10.1 MG/DL Magnesium Level 2.1 1.6-2.4 MG/DL Total Bilirubin 0.5 0.1-1.0 MG/DL Aspartate Amino Transf (AST/SGOT) 19 5-34 U/L Alanine Aminotransferase (ALT/SGPT) 10 0-55 U/L Alkaline Phosphatase 72 40-136 U/L Troponin I 0.30 < 0.028 <0.028 NG/ML Pro-B-Type Natriuretic Peptide 114.1 H <75.0 PG/ML Total Protein 7.3 6.4-8.2 GM/DL Albumin 4.4 3.2-4.5 GM/DL Lipase 33 8-78 U/L Triglycerides Level 77 <150 MG/DL Cholesterol Level 134 < 200 MG/DL LDL Cholesterol Direct 65 1-129 MG/DL VLDL Cholesterol 15 5-40 MG/DL HDL Cholesterol 63 H 40-60 MG/DL Assessment/Plan Assessment and Plan Pt is a 75 yo female who presented with substernal chest pain w/ associated diaphoresis, SOB and nausea that lasted for a few hours on 11/25/20 CAD s/p mid LAD stent placement Stable vs Unstable angina vs coronary artery vasospasm Hypotension Bradycardia Plan: Pt appears to baseline bradycardic, continue to monitor for any symptoms Pt is on IVF for Hypotension Initial ECG was unremarkable, CTM, repeat ECG Troponins were <.028 today, watch further trend Will d/c zofran and switch to phenergan for nausea control Cardiology consulted, on DAPT, may consider BB when pressures have risen Can possible d/c today depending on cardiology workup Problems: (1) Substernal chest pain Status: Acute Assessment & Plan: on DAPT and IVF. Troponin negative, ECG negative, chest xray negative (2) CAD (coronary artery disease) Status: Chronic Assessment & Plan: s/p mid LAD stent placement on 10/13/2020 (3) HTN (hypertension) Status: Chronic Assessment & Plan: on lisinopril 10 at home (4) Anxiety Status: Chronic Assessment & Plan: on venlafaxine 75 BID Clinical Quality Measures AMI/AHF: ASA po Prior to arrival: No DVT/VTE Risk/Contraindication: Risk Factor Score Per Nursin RFS Level Per Nursing on Admit: 4+=Very High TA WORKMAN MD 11/26/20 1204: Allergies and Home Medications Allergies Coded Allergies: coconut (Verified Allergy, Unknown, 03/21/19) pineapple (Verified Allergy, Unknown, 03/21/19) strawberry (Verified Allergy, Unknown, 03/21/19) Home Medications Acetaminophen 500 Mg Tablet, 1,000 MG PO Q6H PRN for PAIN-MILD (1-4), (Reported) Ascorbate Calcium 500 Mg Tablet, 500 MG PO DAILY, (Reported) Aspirin 81 Mg Tablet.dr, 81 MG PO DAILY, (Reported) Atorvastatin Calcium 10 Mg Tablet, 10 MG PO HS, (Reported) C,E,Zinc,Copper 24/Om3/Lut/Katie 1 Each Capsule, 1 EACH PO DAILY, (Reported) Lisinopril 10 Mg Tablet, 10 MG PO HS, (Reported) LAST FILLED 09-10-2018 #90/90 DAY SUPPLY Pantoprazole Sodium 40 Mg Tablet.dr, 40 MG PO DAILY PRN for HEARTBURN, (R eported) Temazepam 30 Mg Capsule, 30 MG PO HS, (Reported) Ticagrelor 90 Mg Tablet, 90 MG PO DAILY, (Reported) Trazodone HCl 150 Mg Tablet, 150 MG PO HS, (Reported) Venlafaxine HCl 75 Mg Tab, 75 MG PO BID, (Reported) Patient Home Medication List Home Medication List Reviewed: Yes Assessment/Plan Admission Diagnosis Admission Status: Observation Supervisory-Addendum Brief Verification & Attestation Participated in pt care: history, physical Personally performed: exam, history Care discussed with: Medical Student Procedures: n/a Verification and Attestation of Medical Student E/M Service A medical student performed and documented this service in my presence. I reviewed and verified all information documented by the medical student and made modifications to such information, when appropriate. I personally performed the physical exam and medical decision making. Ta Workman, Nov 26, 2020,12:02 Atypical Chest pain CAD HTN HLD Cardiology to consult, appreciate recommendations, Cardiac workup so far negative. Possible d/c after consult. LORNE MARTE III MED STUDENT Nov 26, 2020 09:17 TA WORKMAN MD Nov 26, 2020 12:04
[2020-11-26] MEDS ORDERED: TICA90TA PO (09:32)
[2020-11-26] MEDS ORDERED: ACET-2267 PO (09:32)
[2020-11-26] MEDS ORDERED: ATOR10TA66 PO (09:32)
--- NOTE | 2020-11-26 09:34 | NUR ---
SPOKE WITH THE PT AND WENT THRU THE EXT MED HISTORY TO COMPLETE THE MED REC PT IS PAST DUE FOR A REFILL ON LISINOPRIL 10MG- [facility] SE[facility] 2020 AND AT THAT TIME SHE LET ME KNOW THAT DUE TO LOW BP DR. MOJICA HAS TOLD HER TO STOP TAKING. HOWEVER RECENTLY SHE FELT LIKE HER BP WAS GETTING HIGH AND STARTED TAKING IT AGAIN (WHEN I LOOKED THRU HER MEDS SHE HAD ALMOST A FULL BOTTLE FROM 2017). WHEN I SPOKE WITH THE PT TODAY SHE LET ME KNOW THAT SHE IS STILL TAKING. OTC MEDS: ASPIRIN 81MG VIT C OCUVITE TYLENOL
[2020-11-26] MEDS: TICAGRELOR 90 MG TABLET (BRILINTA) PO SCH (09:45)
[2020-11-26] MEDS: NS IV 1000 ML 1,000 ML IV SCH (10:37)
[2020-11-26 12:00] VITALS: BP 123/75
--- NOTE | 2020-11-26 14:48 | Consultation-Cardiology ---
HPI-Cardiology Cardiology Consultation: Date of Consultation 11/26/20 Date of Admission Attending Physician Willow Workman MD Admitting Physician Shreyas Abbott MD Consulting Physician Patricia DIGGS MD HPI: Time Seen by a Provider: 14:47 Chief Complaint: chest pain 75 year old lady with history of PCI by Dr De Dios. c/o chest pain . no current chest pain when i saw the patient. no smoking. family history negative Review of Systems-Cardiology Review of Systems Constitutional: As described under HPI; No As described under HPI, No no symptoms reported, No chills, No fever, No lightheadedness Eyes: No As described under HPI, No no symptoms reported, No blindness, No blurred vision, No contact lenses, No drainage, No decreased acuity, No foreign body sensation, No pain, No vision change Ears/Nose/Throat: No As described under HPI, No no symptoms reported, No chronic hearing loss, No ear discharge, No ear pain, No nasal drainage, No ulcerations Respiratory: No no symptoms reported; As described under HPI; No As described under HPI, No cough, No orthopnea, No shortness of breath, No SOB with excertion Cardiovascular: No no symptoms reported; As described under HPI; No As described under HPI; chest pain; No edema, No irregular heart rate, No lightheadedness, No palpitations Gastrointestinal: No no symptoms reported, No As described under HPI, No abdomen distended, No abdominal pain, No blood streaked bowels, No constipation, No diarrhea, No nausea, No vomiting, No stool coloration changes Genitourinary: No As described under HPI, No burning, No dysuria, No discharge, No frequency, No flank pain, No hematuria, No urgency : Yes : No Skin: No rash, No skin related problems, No ulcerations Psychiatric/Neurological: No anxiety, No depression, No seizure, No focal weakness, No syncope Hematologic: No bleeding abnormalities EGR-Vdvywe-Xxojte Hx Patient Social History Number of Children: 1 Number of living children: 0 Employed/Student: employed Alcohol Use: Denies Use Recreational Drug Use: Yes Drug of Choice: meth Smoking Status: Current Everyday Smoker Type Used: Cigarettes 2nd Hand Smoke Exposure: No Recent Foreign Travel: No Recent Infectious Disease Expo: No Hospitalization with Isolation: Denies Immunizations Up To Date Date of Pneumonia Vaccine: Mar 13, 2020 Date of Influenza Vaccine: Mar 13, 2021 Past Medical History PMH As described under Assessment. Allergies and Home Medications Allergies Coded Allergies: coconut (Verified Allergy, Unknown, 03/21/19) pineapple (Verified Allergy, Unknown, 03/21/19) strawberry (Verified Allergy, Unknown, 03/21/19) Home Medications Acetaminophen 500 Mg Tablet, 1,000 MG PO Q6H PRN for PAIN-MILD (1-4), (Reported) Ascorbate Calcium 500 Mg Tablet, 500 MG PO DAILY, (Reported) Aspirin 81 Mg Tablet.dr, 81 MG PO DAILY, (Reported) Atorvastatin Calcium 10 Mg Tablet, 10 MG PO HS, (Reported) C,E,Zinc,Copper 24/Om3/Lut/Katie 1 Each Capsule, 1 EACH PO DAILY, (Reported) Lisinopril 10 Mg Tablet, 10 MG PO HS, (Reported) LAST FILLED 09-10-2018 #90/90 DAY SUPPLY Pantoprazole Sodium 40 Mg Tablet.dr, 40 MG PO DAILY PRN for HEARTBURN, (Reported) Temazepam 30 Mg Capsule, 30 MG PO HS, (Reported) Ticagrelor 90 Mg Tablet, 90 MG PO DAILY, (Reported) Trazodone HCl 150 Mg Tablet, 150 MG PO HS, (Reported) Venlafaxine HCl 75 Mg Tab, 75 MG PO BID, (Reported) Patient Home Medication List Home Medication List Reviewed: Yes Physical Exam-Cardiology Physical Exam Vital Signs/I&O Capillary Refill : Less Than 3 SecondsLess Than 3 Seconds Constitutional: appears stated age; No apparent distress; well-developed, well- nourished HEENT: PERRL; No discharge; hearing is well preserved, oral hygience is good; No ulceration, No xanthelasmas are seen Neck: No carotid bruit; carotid pulses are 2 + bilaterally Respiratory: chest is bilaterally symmetric, lungs clear to auscultation Cardiovascular: regular rate-rhythm, S1 and S2 Gastrointestinal: soft, audible bowel sounds; No spleenomegaly Rectal: deferred Extremities: normal range of motion, normal inspection; No clubbing, No cyanosis; no lower extremity edema bilateral; No significant edema Neurologic/Psychiatric: no motor/sensory deficits, alert, normal mood/affect, oriented x 3, power is 5/5 both on sides Skin: normal color; No rash, No ulcerations Data Review Labs ECG Impression ECG Initial ECG Rhythm: Normal Sinus Initial ECG Impression: Nonspecific Changes A/P-Cardiology Assessment/Admission Diagnosis chest pain, CAD Plan Two set of troponin negative. check one more, if negative, can be discharged to follow with Dr De Dios on Sunday. Continue aspirin and brilinta. Thank you for your consultation. Please call me if you have any questions. Gary Diggs MD, FACP, FACC, FSCAI, FHRS, CCDS Interventional Cardiology Cardiac Electrophysiology Vascular Medicine and Endovascular Interventions Clinical Quality Measures AMI/AHF: ASA po Prior to arrival: No DVT/VTE Risk/Contraindication: Risk Factor Score Per Nursin RFS Level Per Nursing on Admit: 4+=Very High Patricia DIGGS MD Nov 26, 2020 14:48
[2020-11-26 16:06] VITALS: BP 119/62
--- NOTE | 2020-11-26 17:13 | NUR ---
Reviewed discharge orders with patient, including follow up appt with Dr De Dios, appointment information faxed to his office. She is aware to call Dr De Dios's Office by noon if they do not call her with an appointment time.
--- NOTE | 2020-11-30 11:59 | Physician Query-Final Dx ---
ADAL MONTGOMERY 11/30/20 1159: Final Diagnosis Give Final Diagnosis Please give Final Diagnosis PETTY RODRIGUEZ MD 12/09/202028: Final Diagnosis Give Final Diagnosis I was not involved in the care of this patient ADAL MONTGOMERY Nov 30, 2020 11:59 PETTY RODRIGUEZ MD Dec 09, 2020 20:29
== END 2020-11-26 16:28 | disposition home or self-care (01) ==
LOC: EDUNIT# 14:56 → ER FS 14:58 → 4TH 19:03 → UNDOADMOB 19:03 → 4TH 19:20 → UNDODISOB 11-26 17:15
PROVIDERS: ADMIT Family Medicine; ATTEND Family Medicine
DX: R07.89 Other chest pain (principal); I10 Essential (primary) hypertension; E78.00 Pure hypercholesterolemia, unspecified; F41.9 Anxiety disorder, unspecified; E78.5 Hyperlipidemia, unspecified; F17.210 Nicotine dependence, cigarettes, uncomplicated; Z79.82 Long term (current) use of aspirin; Z79.899 Other long term (current) drug therapy; Z91.018 Allergy to other foods
CPT/HCPCS: 36415; 71045; 80053; 80061; 83690; 83735; 83880; 84484 ×3; 85025; 85610; 85730; 93005 ×2; 93041; 96374; 96375; 96376; 99284; G0378

== ENCOUNTER → 2020-12-22 | Outpatient (CLI) | payer MEDICARE, OTHER ==
[~2020-12-22] VITALS: Ht 180 cm; Wt 70.0 kg
[~2020-12-22] MED LIST changes: +ACET-2267 PO; +CATHETER FLUSH 10 ML SYR IV PRN; +REGADENOSON 0.4 MG/5 ML SYR (LEXISCAN) IV ONE
[2020-12-22 09:32] VITALS: BP 155/80
--- NOTE | 2020-12-22 12:32 | Cardiology Stress Test Report ---
Stress Test Report Date of Procedure/Referring: Date of Procedure: Dec 22, 2020 Anjelica Astudillo Admitting Physician Shreyas Abbott MD Indications: Chest pain Baseline Heart Rate: 59 Baseline Blood Pressure: Blood Pressure Systolic: 155 Blood Pressure Diastolic: 80 Baseline Vitals Vital Signs Date Time Temp Pulse Resp B/P (MAP) Pulse Ox O2 Delivery O2 Flow Rate FiO2 12/22/20 09:32 155/80 (105) Baseline EKG: Baseline EKG: NSR Summary After explaining the procedure to the patient, she signed a consent and then brought to the stress nuclear laboratory. Patient received 0.4 mg Lexiscan for stress test, ECG, heart rate and blood pressure were monitored continuously. Resting and stress dose of radio tracer were injected, imaging was acquired and reviewed in short axis, horizontal long axis and vertical long axis views. TID: 1.01 SSS: 2 SDS: 2 EF: 67 1. Patient tolerated Lexiscan well 2. Extracardiac attenuation with no significant ischemia or infarction on SPECT images 3. Normal left ventricular size, EF 67 percent ELVIN MANDEL MD Dec 22, 2020 12:32
== END ==
LOC: CARD 08:15
PROVIDERS: ATTEND Physician Assistant
DX: R07.89 Other chest pain (principal)
CPT/HCPCS: 78452; 93017; A9502

== ENCOUNTER 2021-07-13 13:00 | Day surgery (SDC) | payer MEDICARE, OTHER ==
[~2021-07-13] VITALS: Ht 180.3 cm; Wt 75.7 kg
[2021-07-13] VITALS (12 sets, daily range): BP systolic 128–169; BP diastolic 60–87
[2021-07-13] MEDS: NS IV 1000 ML 1,000 ML IV SCH ×4 (10:55→22:16)
--- NOTE | 2021-07-13 11:13 | Diagnostic Imaging Report ---
INDICATION: Preop for catheterization procedure, peripheral vascular disease. TECHNIQUE/COMPARISON: A frontal chest was obtained at 10:59 AM and compared to 11/25/2020. FINDINGS: The heart and mediastinal silhouette are normal in appearance. The lungs are clear. There is no pneumothorax or pleural fluid. IMPRESSION: Negative chest. Dictated by: Dictated on workstation # [id number]
[2021-07-13 11:19] LABS: HEMATOCRIT 43 % (35-52); HEMOGLOBIN 13.6 g/dL (11.5-16.0); MEAN CORPUSCULAR HEMOGLOBIN 30 pg (25-34); MEAN CORPUSCULAR HGB CONC 32 g/dL (32-36); MEAN CORPUSCULAR VOLUME 94 fL (80-99); MEAN PLATELET VOLUME 9.4 fL (9.0-12.2); PLATELET COUNT 335 10^3/uL (130-400); WHITE BLOOD COUNT 6.3 10^3/uL (4.3-11.0)
[2021-07-13 11:24] LABS: PROTHROMBIN TIME PATIENT 13.2 SEC (12.2-14.7)
[2021-07-13 11:29] LABS: ALBUMIN 4.2 GM/DL (3.2-4.5); BILIRUBIN,TOTAL 0.5 MG/DL (0.1-1.0); CALCIUM 9.6 MG/DL (8.5-10.1); CREATININE SERUM 0.99 MG/DL (0.60-1.30); POTASSIUM 4.1 MMOL/L (3.6-5.0); TOTAL PROTEIN 7.7 GM/DL (6.4-8.2)
[~2021-07-13 13:00] MED LIST changes: -CATHETER FLUSH 10 ML SYR IV PRN; +CHOL20002 PO; +HEParin (CATH LAB) 2,000 ML IV ONE; +LEVO5TAB28 PO; +LIDOCAINE 1% INJ 20 ML 20 ML VIAL ONE; -LISI10TA2 PO; +LISI10TA25 PO; +LISI20TA26 PO; +NITR0.4T39 SL; +NS IV 1000 ML 1,000 ML IV SCH; +NS IV 1000 ML 1,000 ML ONE; -REGADENOSON 0.4 MG/5 ML SYR (LEXISCAN) IV ONE; +RT-ALBUINH IH; +VIT1CAPS44 PO
[2021-07-13] MEDS ORDERED: PATIENT MAY USE OWN MEDS, ALL PO SCH (13:15)
--- NOTE | 2021-07-13 13:15 | Conscious Sedation/ASA ---
Conscious Sedation Pre-Proced Time 12:00 ASA Score 3 For ASA 3 and 4: Consider anesthesia and medical clearance. Also, for patients with a history of failed moderate sedation consider anesthesia. Airway Lungs Heart ASA score ASA 1: a normal healthy patient ASA 2: a patient with a mild systemic disease (mid diabetes, controlled hypertension, obesity x ASA 3: a patient with a severe systemic disease that limits activity (angina, COPD, prior Myocardial infarction) ASA 4: a patient with an incapacitating disease that is a constant threat to life (CHF, renal failure) ASA 5: a moribund patient not expected to survive 24 hrs. (ruptured aneurysm) ASA 6: a declared brain- patient whose organs are being harvested. For emergent operations, add the letter E after the classification Mallampati Classification Grade 3 Sedation Plan Analgesia, Amnesia, Plan communicated to team members, Discussed options with patient/fam, Discussed risks with patient/fam The patient is an appropriate candidate to undergo the planned procedure, sedation, and anesthesia. The patient immediately re-assessed prior to indication. ELVIN MANDEL MD Jul 13, 2021 13:15
--- NOTE | 2021-07-13 13:22 | Peripheral Report ---
Peripheral Report Physician (s)/Hat Block Maker (s) Physician ELVIN MANDEL MD Pre-Procedure Diagnosis Pre-Procedure Diagnosis: Claudication Post-Procedure Note Procedure Start Date: Jul 13, 2021 Name of Procedure: Bilateral lower extremity runoff Third order Additional imaging x2 Stenting to the right popliteal artery Findings/Procedure Note PROCEDURE NOTE: 75-year-old lady with history of hypertension, hyperlipidemia, claudication, had an abnormal CAMI on the right side, normal CAMI on the left side, scheduled for peripheral angiogram After explaining the procedure to the patient, all pros and cons were explained, all questions were answered. The patient signed the consent and then she was placed on the cardiac catheterization laboratory. The patient was placed on the cardiac catheterization laboratory. Groin was prepped SL fashion local anesthesia was used. Sheath placed in the left femoral artery, runoff to the left leg was done through the sheath then additional image below the trifurcation using DSA, then crossover catheter was used to cross over with a long straight catheter exchanged and placed in the right common femoral artery, runoff to the right lower extremity was done. Patient has severe sten osis at the popliteal artery, given 5000 unit of heparin, long J-wire was used then exchanged the catheter and the sheath and used 6 Cuban sheath 55 cm, advanced to the mid right SFA then runoff to the right leg was done, command 18 wire was used predilatation using [place] 5.5 x 60 then deployment of supera 5.5 x 60 postdilated with the same balloon, angiogram showed excellent results then DSA imaging was done at the right side below the trifurcation, at the end of the procedure the sheath was exchanged again using short 6 Cuban sheath then closure device deployed. FINDINGS: Right lower extremity, severe stenosis of the right popliteal artery successful balloon angioplasty then deployment of Supera 5.5 x 60 with excellent results, good flow down to the foot Left lower extremity, mild disease in the mid SFA, nonobstructive disease, slow flow distally due to small vessel disease nonobstructive disease CONCLUSIONS: 1. Severe stenosis at the mid right popliteal artery with successful deployment of Supera 5.5 x 60 with excellent results otherwise mild disease in the right lower extremity 2. Mild disease at the left lower extremity with slow flow down at the foot level due to small vessel disease nonobstructive disease DISCUSSION AND RECOMMENDATIONS: Continue on aspirin and Brilinta, continue to monitor lipids Anesthesia Type: Conscious Sedation Estimated blood loss (mL): 25 ml Contrast Amount: 50 ml Total Radiation Dose: 71 mGy Post-Procedure Diagnosis Post-operative diagnosis: Claudication Peripheral arterial disease Hypertension Hyperlipidemia ELVIN MANDEL MD Jul 13, 2021 13:22
[2021-07-13] MEDS ORDERED: RT-ALBUTEROL SULF 2.5 MG/3 ML PRE-MIX VIAL IH PRN (13:30)
[2021-07-13] MEDS ORDERED: ASPIRIN E.C. 81 MG (ECOTRIN) TAB PO SCH (13:30)
[2021-07-13] MEDS: TICAGRELOR 90 MG TABLET (BRILINTA) PO SCH (20:25)
[2021-07-13] MEDS ORDERED: TEMAZEPAM 15 MG (RESTORIL) CAP PO SCH (21:00)
[2021-07-13] MEDS ORDERED: AtorvaSTATin TABLET 10 MG TABLET PO SCH (21:00)
[2021-07-13] MEDS ORDERED: NON-FORMULARY MEDICATION 1 EA EA (Temazepam 30 MG) PO SCH (21:00)
[2021-07-13] MEDS ORDERED: LORATADINE (CLARITIN) 10 MG TAB PO SCH (21:00)
[2021-07-13] MEDS ORDERED: LEVOCETIRIZINE 5 MG TAB (XYZAL) NON-FORMULARY PO SCH (21:00)
[2021-07-13] MEDS ORDERED: traZODone 150 MG (DESYREL) TABLET PO SCH (21:00)
[2021-07-14 00:45] VITALS: BP 113/62
[2021-07-14 03:57] VITALS: BP 104/66
[2021-07-14 03:59] LABS: HEMATOCRIT 38 % (35-52); HEMOGLOBIN 11.9 g/dL (11.5-16.0); MEAN CORPUSCULAR HEMOGLOBIN 30 pg (25-34); MEAN CORPUSCULAR HGB CONC 32 g/dL (32-36); MEAN CORPUSCULAR VOLUME 94 fL (80-99); MEAN PLATELET VOLUME 9.5 fL (9.0-12.2); PLATELET COUNT 258 10^3/uL (130-400); WHITE BLOOD COUNT 6.4 10^3/uL (4.3-11.0)
[2021-07-14 04:10] LABS: POTASSIUM 4.2 MMOL/L (3.6-5.0)
[2021-07-14 04:16] LABS: CREATININE SERUM 0.86 MG/DL (0.60-1.30)
[2021-07-14] MEDS: NS IV 1000 ML 1,000 ML IV SCH (05:16)
[2021-07-14] MEDS ORDERED: TICA90TA PO (06:55)
--- NOTE | 2021-07-14 06:56 | Discharge Inst-Post CATH ---
Discharge Inst-CATH/EP Problems Reviewed?: Yes Post Cardiac Cath/EP D/C Inst Follow Up/Plan Appointment with Dr De Dios in 2 weeks <b>CARDIAC CATH/EP PROCEDURE DISCHARGE INSTRUCTIONS</b> ACTIVITY * Go Home directly and rest. * Limit activity of the leg (or wrist if it was used) for 7 days including aerobics, swimming, jogging, bicycling, etc. * Restrict stair-climbing for 7 days if possible, if not, climb up with your non-cath leg, then bring together on the same step. * Avoid lifting, pushing, pulling or excessive movement of the affected extremity for 7 days. * Customary sexual activity may be resumed after 2 days-use caution not to use a position that strains or causes pain to the affected extremity. * No driving for 24 hours. * NO SMOKING. * Avoid straining for bowel movements for 7 days. * Gentle walking on level ground is allowed. * Returning to work will depend on the type of procedure and the results. Your doctor will discuss this with you. CALL YOUR DOCTOR FOR ANY OF THE FOLLOWING: *If bleeding from the puncture site occurs- Apply gentle pressure to site with clean cloth and call your doctor or EMS. * If a knot or lump forms under the skin, increases in size, or causes pain. * If bruising appears to be worsening or moving further down your leg instead of disappearing. * Temperature above 101 F. CARE OF YOUR GROIN INCISION; * Bruising or purple discoloration of the skin near the puncture site is common. * You may shower only, no bathtub bathing for 5 days. Be careful to avoid slipping as your leg may feel stiff. * If a closure device was used on your femoral artery, please see the attached guide regarding care of the device and your leg. * Leave dressing on FOR 24 hours. CARE OF YOUR WRIST INCISION; * Bruising or purple discoloration of the skin near the puncture site is common. * You may shower. * DO NOT submerge wrist. * Leave dressing on FOR 24 hours. ELVIN DE DIOS MD Jul 14, 2021 06:56
[2021-07-14] MEDS ORDERED: VENlafaxine 75 MG (EFFEXOR) TAB PO SCH (07:00)
[2021-07-14 08:16] VITALS: BP 117/65
[2021-07-14] MEDS: TICAGRELOR 90 MG TABLET (BRILINTA) PO SCH (08:16)
--- NOTE | 2021-07-14 08:59 | Cardiology Progress Note ---
Subjective Date Seen by Provider: Jul 14, 2021 Time Seen by Provider: 08:57 Subjective/Events-last exam Patient is feeling well, did not sleep well last night. No chest pain, groin is feeling well Review of Systems General: No Chills, No Night Sweats, No Fatigue, No Malaise, No Appetite, No Other HEENT: No Head Aches, No Visual Changes, No Eye Pain, No Ear Pain, No Dysphasia, No Sinus Congestion, No Post Nasal Drip, No Sore Throat, No Other Pulmonary: No Dyspnea, No Cough, No Pleuritic Chest Pain, No Other Cardiovascular: No: Chest Pain, Palpitations, Orthopnea, Paroxysmal Noc. Dyspnea, Edema, Lt Headedness, Other Objective-Cardiology Exam Last Set of Vital Signs Vital Signs 07/14/21 08:16 Temp 36.8 Pulse 78 Resp 14 B/P (MAP) 117/65 (82) Pulse Ox 94 O2 Delivery Room Air I&O Intake and Output 07/14/21 00:00 Intake Total 600 ml Output Total 350 ml Balance 250 ml Intake Oral 600 ml Output Urine Total 350 ml # Voids 2 General: Alert, Oriented X3, Cooperative HEENT: Atraumatic, PERRLA Neck: Supple, No JVD, No Thyromegaly Lungs: Clear to Auscultation, Normal Air Movement Heart: Regular Rate, Normal S1, Normal S2, No Murmurs Abdomen: Normal Bowel Sounds, Soft, No Tenderness, No Hepatosplenomegaly, No Masses Extremities: No Clubbing, No Cyanosis, No Edema, Normal Pulses, No Tenderness/Swelling Skin: No Rashes, No Breakdown, No Significant Lesion Neuro: Normal Gait, Normal Speech, Strength at 5/5 X4 Ext, Normal Tone, Sensation Intact Psych/Mental Status: Mental Status NL, Mood NL Results Lab Laboratory Tests 07/13/21 11:00 07/14/21 03:45 A/P-Cardiology Admission Diagnosis Claudication Peripheral arterial disease Hypertension Hyperlipidemia Assessment/Plan Claudication, peripheral arterial disease, status post percutaneous intervention 1. Severe stenosis at the mid right popliteal artery with successful deployment of Supera 5.5 x 60 with excellent results otherwise mild disease in the right lower extremity 2. Mild disease at the left lower extremity with slow flow down at the foot level due to small vessel disease nonobstructive disease Leg cramps, secondary to peripheral arterial disease, continue to monitor Hypertension, monitor blood pressure Hyperlipidemia, monitor lipids Plan for discharge today ELVIN MANDEL MD Jul 14, 2021 08:59
[2021-07-14] MEDS ORDERED: PANTOPRAZOLE 40 MG (PROTONIX) TAB PO SCH (09:00)
[2021-07-14] MEDS ORDERED: lisINopril 20 MG (PRINIVIL) TABLET PO SCH (09:00)
== END 2021-07-14 11:45 ==
LOC: CATH 13:00 → CSD 13:30 → CATH 07-14 11:45 → CSD 07-14 14:03
PROVIDERS: ATTEND Internal Medicine Cardiovascular Disease
DX: I70.213 Atherosclerosis of native arteries of extremities with intermittent claudication, bilateral legs (principal); I10 Essential (primary) hypertension; I25.10 Atherosclerotic heart disease of native coronary artery without angina pectoris; I65.23 Occlusion and stenosis of bilateral carotid arteries; E78.2 Mixed hyperlipidemia; Z79.891 Long term (current) use of opiate analgesic; Z79.899 Other long term (current) drug therapy; Z87.891 Personal history of nicotine dependence
CPT/HCPCS: 36247; 36248; 37226; 71045; 75716; 80048; 80053; 80061; 85027 ×2; 85610; 85730; 87081; C1725 ×2; C1769 ×2; C1887 ×2; C1894 ×2; 36415

== ENCOUNTER → 2022-04-19 | Outpatient (CLI) | payer MEDICARE ==
[~2022-04-19] MED LIST changes: +CATHETER FLUSH 10 ML SYR IVP PRN; -HEParin (CATH LAB) 2,000 ML IV ONE; -LIDOCAINE 1% INJ 20 ML 20 ML VIAL ONE; -NS IV 1000 ML 1,000 ML IV SCH; -NS IV 1000 ML 1,000 ML ONE; +REGADENOSON 0.4 MG/5 ML SYR (LEXISCAN) IV ONE
[2022-04-19 09:15] VITALS: BP 163/89
--- NOTE | 2022-04-19 11:24 | Cardiology Stress Test Report ---
Stress Test Report Date of Procedure/Referring: Date of Procedure: Apr 19, 2022 PCP Fuentes Abbott MD Admitting Physician Admitting Physician: Attending Physician: Anjelica Baum Indications: CAD Baseline Heart Rate: 53 Baseline Blood Pressure: Blood Pressure Systolic: 163 Blood Pressure Diastolic: 89 Baseline Vitals Vital Signs Date Time Temp Pulse Resp B/P (MAP) Pulse Ox O2 Delivery O2 Flow Rate FiO2 04/19/22 09:15 56 18 163/89 (113) Baseline EKG: Baseline EKG: NSR Summary After explaining the procedure to the patient, she signed a consent and then brought to the stress nuclear laboratory. Patient received 0.4 mg Lexiscan for stress test, ECG, heart rate and blood pressure were monitored continuously. Resting and stress dose of radio tracer were injected, imaging was acquired and reviewed in short axis, horizontal long axis and vertical long axis views. TID: 1.1 SSS: 0 SDS: 0 EF: 72 1. Patient tolerated Lexiscan well 2. No significant ischemia or infarction on SPECT images 3. Normal left ventricular size, ejection fraction 72% Copy Copies To 1: FUENTES ABBOTT MD, BASHAR J MD Apr 19, 2022 11:24
== END ==
LOC: CARD 08:15
PROVIDERS: ATTEND Physician Assistant
DX: I25.10 Atherosclerotic heart disease of native coronary artery without angina pectoris (principal)
CPT/HCPCS: 78452; 93017; A9502

== ENCOUNTER 2022-08-11 15:57 | Emergency (ER) | payer OTHER, MEDICARE ==
[~2022-08-11] VITALS: Ht 180.3 cm; Wt 78.0 kg
[~2022-08-11 15:57] MED LIST changes: -CATHETER FLUSH 10 ML SYR IVP PRN; -REGADENOSON 0.4 MG/5 ML SYR (LEXISCAN) IV ONE
[2022-08-11 16:02] VITALS: BP 137/74
[2022-08-11] MEDS ORDERED: IBUPROFEN 800 MG (MOTRIN) TAB PO STA (16:08)
--- NOTE | 2022-08-11 16:23 | ED Lower Extremity ---
General Chief Complaint: Lower Extremity Stated Complaint: WC,R FOOT PAIN Nursing Triage Note: Patient reports she was unloading boxes from a truck while working at [employer]. She states she dropped a box and it landed on her right foot. Source: patient History of Present Illness Date Seen by Provider: Aug 11, 2022 Time Seen by Provider: 16:02 Initial Comments 76-year-old female presenting with complaints of right foot pain. She was working at [employer] today and helping unload a truck delivery. She had a box that had accidentally been dropped and landed on her right foot. She has increasing pain to the lateral aspect of her right foot. She has not taken anything for pain prior to arrival. She has had recent injury about a week ago with dropping a fire pit ring on top of her foot which caused swelling to the medial aspect of her foot. She states the pain is increased to the point now that she can not bear weight on her right foot. She had finished unloading the truck at work. With the pain getting so severe she finally agreed to come in to be seen in the emergency department. Onset: this afternoon (Around 1300) Severity: severe Pain/Injury Location: right foot (Lateral aspect) Method of Injury: direct blow (Box dropped on her foot) Modifying Factors: Worse With Movement Allergies and Home Medications Allergies Coded Allergies: coconut (Verified Allergy, Unknown, 03/21/19) pineapple (Verified Allergy, Unknown, 03/21/19) strawberry (Verified Allergy, Unknown, 03/21/19) Patient Home Medication List Home Medication List Reviewed: Yes Albuterol Sulfate (Proair Hfa) 1 Puff Puff, 2 PUFF IH Q4H PRN for SHORTNESS OF BREATH, (Reported) Entered as Reported by: EMILY ELKINS on 07/13/21 1130 Aspirin (Aspirin EC) 81 Mg Tablet.dr, 81 MG PO Q48H, (Reported) Entered as Reported by: EMILY ELKINS on 10/13/20 0818 Atorvastatin Calcium (Atorvastatin Calcium) 10 Mg Tablet, 10 MG PO HS, (Reported) Entered as Reported by: EMILY ELKINS on 11/26/20 0932 Cholecalciferol (Vitamin D3) (Vitamin D3) 50 Mcg Capsule, 50 MCG PO DAILY, (Reported) Entered as Reported by: EMILY ELKINS on 07/13/21 1132 Levocetirizine Dihydrochloride (Xyzal) 5 Mg Tablet, 5 MG PO HS, (Reported) Entered as Reported by: EMILY ELKINS on 07/13/21 113 Lisinopril (Lisinopril) 20 Mg Tablet, 20 MG PO DAILY, (Reported) Entered as Reported by: EMILY ELKINS on 07/13/21 113 Nitroglycerin (Nitroglycerin) 0.4 Mg Tab.subl, 0.4 MG SL UD PRN for CHEST PAIN, (Reported) Entered as Reported by: EMILY ELKINS on 07/13/21 113 Pantoprazole Sodium (Pantoprazole Sodium) 40 Mg Tablet.dr, 40 MG PO DAILY, (Reported) Entered as Reported by: EMILY ELKINS on 10/13/20 08 Temazepam (Temazepam) 30 Mg Capsule, 30 MG PO HS, (Reported) Entered as Reported by: EMILY ELKINS on 10/13/20 08 Ticagrelor (Brilinta) 90 Mg Tablet, 90 MG PO BID Prescribed by: ELVIN MANDEL on 07/14/21 0655 Trazodone HCl (Trazodone HCl) 150 Mg Tablet, 150 MG PO HS, (Reported) Entered as Reported by: EMILY ELKINS on 10/13/20 08 Venlafaxine HCl (Venlafaxine HCl) 75 Mg Tab, 75 MG PO DAILY, (Reported) Entered as Reported by: EMILY ELKINS on 10/13/20 0818 Vit C/E/Zn/Coppr/Lutein/Zeaxan (Preservision Areds 2 Softgel) 1 Each Capsule, 2 EACH PO DAILY, (Reported) Entered as Reported by: EMILY ELKINS on 07/13/21 113 Review of Systems Constitutional: No chills, No fever EENTM: no symptoms reported Respiratory: no symptoms reported Cardiovascular: no symptoms reported Gastrointestinal: no symptoms reported Genitourinary: no symptoms reported Musculoskeletal: see HPI Skin: No change in color Psychiatric/Neurological: Denies Numbness Past Upmeabp-Dkahpe-Wdsbjt Hx Seasonal Allergies Seasonal Allergies: No Past Medical History Surgery/Hospitalization HX: Coronary artery disease with prior stenting, high cholesterol, high blood pressure Surgeries: Yes (CONE SECTION 1974, ARMS BILAT CARPAL TUNNEL) Coronary Stent Respiratory: No Currently Using CPAP: No Currently Using BIPAP: No Cardiac: Yes Coronary Artery Disease, High Cholesterol, Hypertension Neurological: Yes Vertigo Genitourinary: No Gastrointestinal: No Musculoskeletal: Yes (CARPAL TUNNEL) Endocrine: No HEENT: No Cancer: No Psychosocial: Yes Anxiety Integumentary: No Blood Disorders: No Family Medical History Heart Disease Physical Exam Vital Signs Vital Signs - First Documented 08/11/22 16:02 Temp 37.0 Pulse 94 Resp 16 B/P (MAP) 137/74 (95) Pulse Ox 100 O2 Delivery Room Air Capillary Refill : Less Than 3 Seconds Height, Weight, BMI Height: 5'11.00" Weight: 150lbs. oz. 68.220078fp; 23.00 BMI Method:Stated General Appearance: WD/WN, no apparent distress Cardiovascular: normal peripheral pulses Feet: right foot pain (Lateral aspect of the right foot), right foot soft tissue tenderness, right foot swelling (Medial aspect of foot over the first metatarsal) Neurologic/Tendon: normal sensation, normal motor functions, normal tendon functions Neurologic/Psychiatric: alert, oriented x 3 Skin: normal color, warm/dry; No ecchymosis Progress/Results/Core Measures Results/Orders My Orders Orders - DEWAYNE DEL RIO MD Ibuprofen Tablet (Motrin Tablet) (08/11/22 16:08) Ice: Apply To Affected Area (08/11/22 16:08) Elevate Affected Extremity (08/11/22 16:08) Foot 3 View Right (08/11/22 16:08) Jose Francisco Bandage (08/11/22 16:37) Crutches (08/11/22 16:50) Vital Signs/I&O 08/11/22 16:02 Temp 37.0 Pulse 94 Resp 16 B/P (MAP) 137/74 (95) Pulse Ox 100 O2 Delivery Room Air Blood Pressure Mean: 95 Progress Progress Note #1: Progress Note Ibuprofen to help with pain, ice and elevation to help with pain. Obtain x-rays to evaluate the right foot for acute bony abnormality. Progress Note #2: Time: 16:33 Progress Note No acute fracture seen on x-rays. Will continue with anti-inflammatories alternating with acetaminophen for pain. Ice and elevation to help with pain. Follow-up with work comp clinic for continued pain and concerns. Diagnostic Imaging Diagonstic Imaging: Xray Plain Films/CT/US/NM/MRI: other (Right foot) Comments NAME: HALINA NGUYEN MED REC#: [id number] PT STATUS: REG ER : 1945 PHYSICIAN: DEWAYNE DEL RIO MD ADMIT DATE: 08/11/22/ER FS Draft Date of Exam:08/11/22 FOOT 3 VIEW RIGHT CLINICAL INDICATION: Patient with lateral foot pain after box fell on it at 1300 hours at work. EXAM: X-ray of the right foot, three views. COMPARISON: None. FINDINGS AND IMPRESSION: 1: There is no acute fracture or dislocation. 2: Osteopenia is noted. 3: There is a small calcaneal spur at the Achilles attachment. Dictated on workstation # [id number] Dict: 08/11/22 1627 Trans: 08/11/22 1631 [id number] Interpreted by: VALENTE GREEN MD Electronically signed by: Reviewed: Reviewed by Me Departure Impression Primary Impression: Contusion of right foot, initial encounter Additional Impression: Acute pain of right foot Disposition: HOME, SELF-CARE Condition: Stable Departure-Patient Inst. Decision time for Depature: 16:34 Referrals: FUENTES MOJICA MD (PCP/Family) Primary Care Physician Patient Instructions: Crush Injury (DC), How to Use Crutches, Minor Contusion ED, Using Cold for Pain Add. Discharge Instructions: Alternate acetaminophen with ibuprofen as needed as needed for pain control in your foot. Try to elevate and use ice to help with pain and any swelling. The ice can be applied for 15 to 20 minutes every few hours as needed. Weightbearing as tolerated with Jose Francisco wrap for compression and support. Follow-up with Workmen's Comp. clinic for continued pain and for reevaluation of your foot. All discharge instructions reviewed with patient and/or family. Voiced understanding. DEWAYNE DEL RIO MD Aug 11, 2022 16:23
--- NOTE | 2022-08-11 16:31 | Diagnostic Imaging Report ---
CLINICAL INDICATION: Patient with lateral foot pain after box fell on it at 1300 hours at work. EXAM: X-ray of the right foot, three views. COMPARISON: None. FINDINGS AND IMPRESSION: 1: There is no acute fracture or dislocation. 2: Osteopenia is noted. 3: There is a small calcaneal spur at the Achilles attachment. Dictated by: Dictated on workstation # [id number]
== END 2022-08-11 16:51 | disposition home or self-care (01) ==
LOC: EDUNIT# 15:57 → ER FS 15:58
DX: S90.31XA Contusion of right foot, initial encounter (principal); W20.8XXA Other cause of strike by thrown, projected or falling object, initial encounter; Y99.0 Civilian activity done for income or pay
CPT/HCPCS: 73630

== ENCOUNTER → 2022-09-27 | Outpatient (CLI) | payer MEDICARE, OTHER ==
[~2022-09-27] MED LIST changes: +ALBU8.5H6 IH; -RT-ALBUINH IH
== END ==
LOC: CARD 11:00
PROVIDERS: ATTEND Internal Medicine Cardiovascular Disease
DX: I10 Essential (primary) hypertension (principal); R06.02 Shortness of breath
CPT/HCPCS: 93306

== ENCOUNTER → 2023-01-01 | Outpatient (CLI) | payer MEDICARE ==
--- NOTE | 2023-01-01 17:38 | Diagnostic Imaging Report ---
INDICATION: Osteoarthritis, pain. COMPARISON: None available. TECHNIQUE: Three radiographs of the left knee dated 01/01/2023. FINDINGS: No acute fracture or dislocation. No destructive osseous process. Minimal medial and lateral joint space narrowing without significant osteophyte formation. No significant joint effusion. Moderate background vascular calcifications. No suspicious radiopaque foreign body. IMPRESSION: No acute osseous abnormality with minimal degenerative changes for age and moderate background vascular calcifications. Dictated by: Dictated on workstation # [id number]
== END ==
LOC: RAD FS 11:21
PROVIDERS: ATTEND Nurse Practitioner
DX: M17.12 Unilateral primary osteoarthritis, left knee (principal)
CPT/HCPCS: 73562

== ENCOUNTER → 2023-01-04 | Outpatient (CLI) | payer MEDICARE ==
--- NOTE | 2023-01-04 11:12 | Diagnostic Imaging Report ---
PROCEDURE: MRI left joint lower extremity without contrast. TECHNIQUE: Multiplanar, multisequence non contrast-enhanced MRI of the left lower extremity was accomplished. INDICATION: Left knee pain for 3 weeks. No specific injuries. EXAMINATION: Left knee MRI without contrast 01/04/2023. FINDINGS: The extensor mechanism is intact. The ACL and PCL intact. MCL demonstrates diffuse surrounding edema consistent with a sprain. There is no discontinuity. The lateral collateral ligamentous complex appears intact. There is diffuse abnormal signal intensity throughout the posterior horn of the medial meniscus extending down to the tibial surface consistent with a tear. A tear of the posterior horn and anterior horn of the lateral meniscus also noted. There is moderate thinning of cartilage in the lateral compartment with mild thinning in the medial joint space. Mild thinning of the cartilage in the patellofemoral joint is also noted. There is a small joint effusion. There is a small Madrigal cyst. There is no acute osseous abnormality. IMPRESSION: 1. Tears of both medial and lateral menisci. 2. Possible MCL sprain with remaining ligaments and tendons intact. 3. Degenerative findings as detailed above. Dictated by: Dictated on workstation # [id number]
== END ==
LOC: RAD 09:12
PROVIDERS: ATTEND Nurse Practitioner
DX: M17.12 Unilateral primary osteoarthritis, left knee (principal); M23.232 Derangement of other medial meniscus due to old tear or injury, left knee; M23.201 Derangement of unspecified lateral meniscus due to old tear or injury, left knee
CPT/HCPCS: 73721

== ENCOUNTER 2023-02-07 05:29 | Outpatient (CLI) | payer MEDICARE ==
[~2023-02-07] VITALS: Ht 180.3 cm; Wt 77.3 kg
[2023-02-07] MEDS ORDERED: MV-M1CAP24 PO (12:37)
[2023-02-07] MEDS ORDERED: TRAZ150T72 PO (12:37)
[2023-02-07] MEDS ORDERED: EPIN0.3P18 IJ (12:37)
[2023-02-07] MEDS ORDERED: ALBU8.5H6 IH (12:37)
== END 2023-02-07 14:27 | disposition home or self-care (01) ==
LOC: PREOP 05:29
PROVIDERS: ATTEND Orthopaedic Surgery
DX: Z01.818 Encounter for other preprocedural examination (principal)

== ENCOUNTER 2023-02-14 09:04 | Day surgery (SDC) | payer MEDICARE ==
--- NOTE | 2023-02-07 06:57 | HISTORY AND PHYSICAL ---
DATE OF SERVICE: 02/14/2023 This will be for outpatient surgery on 02/14/2023 for left knee arthroscopy. HISTORY: The patient is a 77-year-old female with progressively worsening left knee pain. She reports pain on the medial and lateral aspects of her knee. She reports swelling in the knee. She denies hip pain, back pain or paresthesias. She underwent an MRI, which reveals medial and lateral meniscus tear. She denies prior history of knee problems. Due to functional impairment and failure to improve with conservative measures, the patient elected to proceed with surgical intervention. REVIEW OF SYSTEMS: No chest pain, no shortness of breath. No dysuria. PAST MEDICAL HISTORY: Anxiety disorder, depression, hyperlipidemia, hypertension, insomnia. PAST SURGICAL HISTORY: Wrist, , carpal tunnel and elbow, right shoulder, coronary stent placement, right leg stent placement. FAMILY HISTORY: Noncontributory. PRIMARY CARE PHYSICIAN: Dr. Abbott. MEDICATIONS: Azelastine, epinephrine, ____, montelukast, ticagrelor, aspirin, venlafaxine, trazodone, temazepam, pantoprazole, lisinopril, atorvastatin. ALLERGIES: PINEAPPLE AND STRAWBERRIES. SOCIAL HISTORY: The patient denies alcohol and tobacco use. PHYSICAL EXAMINATION: GENERAL: The patient is well-developed, well-nourished, in no acute distress. HEENT: Normocephalic, atraumatic. Pupils are equal, round and reactive to light. Oropharynx is clear. NECK: Supple, with no lymphadenopathy. LUNGS: Clear to auscultation bilaterally. HEART: Regular rate and rhythm. ABDOMEN: Soft, nontender, nondistended. EXTREMITIES: The left knee demonstrates tenderness along medial joint line. She has moderate effusion. She has pain medially with Avtar's. There is no varus or valgus laxity. Negative anterior and posterior drawer. Negative straight leg raise. No pain with hip range of motion. IMPRESSION: Left knee medial meniscus tear and lateral meniscus tear with associated chondromalacia. PLAN: Left knee arthroscopy with partial medial and lateral meniscectomies and chondroplasty. The risks, benefits, options, ramifications and recovery have been discussed at length with the patient. She understands and wishes to proceed. Job ID: [id number] DocumentID: [id number] Dictated Date: 01/25/2023 15:38:02 Human Resources Benefits Coordinator Date: 01/25/2023 18:43:00 Dictated By: ANAM GOMES MD
[2023-02-14] VITALS (9 sets, daily range): BP systolic 119–157; BP diastolic 67–81
[~2023-02-14] VITALS: Ht 180 cm; Wt 77.3 kg
[~2023-02-14 09:04] MED LIST changes: +EPIN0.3P18 IJ; +HYDROcodone/APAP 7.5 MG/325 MG (LORTAB, LORCET PLUS) TABLET PO PRN; +MV-M1CAP24 PO
[2023-02-14] MEDS ORDERED: LACTATED RINGERS 1,000 ML IV PRN (09:15)
[2023-02-14] MEDS ORDERED: ceFAZolin INJECTION 2,000 MG in NS (IVPB) 50 ML IV ONE (09:15)
[2023-02-14] MEDS ORDERED: BUPIVACAINE 0.25% 30 ML (SENSORCAINE) VIAL ONE (09:54)
[2023-02-14] MEDS ORDERED: morphine PF (DURAMORPH) 10 MG/10 ML AMP ONE (09:54)
--- NOTE | 2023-02-14 10:48 | Progress Note-Pre Operative ---
Pre-Operative Progress Note Date of Available H&P: Jan 25, 2023 Date H&P Reviewed: Feb 14, 2023 Time H&P Reviewed: 07:11 Changes from last HP none Pre-Operative Diagnosis: left medial and lateral meniscus tears and chondromalacia ANAM GOMES MD Feb 14, 2023 10:48
--- NOTE | 2023-02-14 10:49 | Progress Note-Post Operative ---
Post-Operative Progess Note Surgeon (s)/Curb Machine Operator (s) Surgeon ANAM GOMES MD Curb Machine Operator: Michael Nails Pre-Operative Diagnosis left medial and lateral meniscus tears and chondromalacia Post-Operative Diagnosis left lateral meniscus tear and chondromalacia of the medial and lateral femoral condyles and patella Procedure & Operative Findings Date of Procedure 02/14/23 Procedure Performed/Findings left knee arthroscopic partial medial and lateral meniscectomies and chondro plasty of the medial and lateral femoral condyles and patella Anesthesia Type GETA Estimated Blood Loss Estimated blood loss (mL): minimal Specimens/Packing Specimens Removed none Packing: none ANAM GOMES MD Feb 14, 2023 10:49
[2023-02-14] MEDS ORDERED: fentaNYL INJ 100 MCG/2 ML AMP ONE ×2 (10:51→11:38)
[2023-02-14] MEDS ORDERED: ONDANSETRON 4 MG/2 ML (SDV) Z0FRAN ONE (11:19)
[2023-02-14] MEDS ORDERED: SEVOFLURANE (ULTANE) 15 ML INHAL SOLN ONE (11:19)
[2023-02-14] MEDS ORDERED: LIDOCAINE PF 2% 5 ML (XYLOCAINE) VIAL ONE (11:19)
[2023-02-14] MEDS ORDERED: proPOfol 200 MG/20 ML (DIPRIVAN) VIAL IV ONE (11:19)
[2023-02-14] MEDS ORDERED: BUPIVACAINE 0.25% 30 ML (SENSORCAINE) VIAL INJ ONE (11:31)
--- NOTE | 2023-02-14 11:32 | Anesthesia-General Post-Op ---
General Patient Condition Mental Status/LOC: Same as Preop Cardiovascular: Satisfactory Nausea/Vomiting: Absent Respiratory: Satisfactory Pain: Controlled Complications: Absent Post Op Complications Complications None Follow Up Care/Instructions Patient Instructions None needed. Anesthesia/Patient Condition Patient Condition Patient is doing well, no complaints, stable vital signs, no apparent adverse anesthesia problems. No complications reported per nursing. DORETHA WINTERS CRNA Feb 14, 2023 11:32
[2023-02-14] MEDS ORDERED: morphine PF (DURAMORPH) 10 MG/10 ML AMP INJ ONE (11:33)
[2023-02-14] MEDS ORDERED: ONDANSETRON 4 MG/2 ML (SDV) Z0FRAN IVP PRN (11:45)
[2023-02-14] MEDS ORDERED: fentaNYL INJ 100 MCG/2 ML AMP IVP ONE (11:45)
--- NOTE | 2023-02-14 17:25 | OPERATIVE REPORT ---
DATE OF SERVICE: 02/14/2023 PREOPERATIVE DIAGNOSES: 1. Left knee medial meniscus tear. 2. Left knee lateral meniscus tear. 3. Left knee chondromalacia of the patella. POSTOPERATIVE DIAGNOSES: 1. Left knee lateral meniscus tear. 2. Left knee chondromalacia of the medial femoral condyle. 3. Left knee chondromalacia of lateral femoral condyle. 4. Left knee chondromalacia of the patella. PROCEDURE: 1. Left knee arthroscopic partial lateral meniscectomy. 2. Left knee arthroscopic chondroplasty of the medial femoral condyle. 3. Left knee arthroscopic chondroplasty of lateral femoral condyle. 4. Left knee arthroscopic chondroplasty of the patella. SURGEON: Reggie Gomes MD ORACLE MANAGER: Michael Nails, who assisted throughout the procedure and closed the incisions. ANESTHESIA: General endotracheal by Tali Pedraza CRNA. TOURNIQUET TIME: Not applicable. ESTIMATED BLOOD LOSS: Minimal. DRAINS: None. COMPLICATIONS: None. POSTOPERATIVE PLAN: Routine arthroscopy protocol. The patient was transferred to recovery room awake and stable condition. STATEMENT OF MEDICAL NECESSITY: The patient is a 77-year-old female with complaints of left knee pain, catching, locking and swelling. An MRI revealed evidence of medial and lateral meniscus tears as well as chondromalacia of her medial and patellofemoral compartments. She tried rest, activity modifications and anti-inflammatories without relief. Due to functional impairment and failure to improve with conservative measures, the patient elected to proceed with surgical intervention. Examination under anesthesia revealed range of motion 0/0/130 with negative Cony, negative anterior and posterior drawer. No varus or valgus laxity, negative pivot shift. ARTHROSCOPIC FINDINGS: The patella demonstrated grade 2 chondral flap centrally in a 10 x 10 area. Trochlea demonstrated no significant chondral abnormalities. Medial and lateral gutters were clear. The ACL and PCL were intact. The lateral compartment demonstrated a complex tear of the body and anterior horn of the lateral meniscus involving approximately one-half of the anterior horn and body. In addition, there were grade 2 chondral flaps of the central portion of the femoral epicondyle in a 10 x 10 area. The medial compartment demonstrated grade 2 chondral flaps over the central portion of the femoral epicondyle in a 10 x 10 area. DESCRIPTION OF PROCEDURE: After risks and benefits of the procedure were discussed and questions were answered and informed consent signed and placed on chart. The operative site was confirmed in the preoperative holding area, initialed by surgeon. The patient was then transferred to the operating room and after adequate levels of general endotracheal anesthetic were obtained, a timeout was called, confirming the operative site. Examination under anesthesia was performed with the above findings noted. Left lower extremity was prepped and draped in the usual sterile fashion. The knee joint was injected with 60 mL of fluid and standard inferolateral portal was placed for the arthroscope and direct visualization. Inferior medial portal was created. The menisci cruciates carefully probed with above findings noted. The unstable chondral flaps on the patella were debrided with a shaver back to a stable edge. Scope was then redirected into the medial compartment and unstable chondral flaps on the medial femoral condyle were debrided with a shaver back to a stable edge. Scope was then redirected into the lateral compartment and unstable chondral flaps in lateral femoral condyle were debrided with a shaver back to a stable edge and the lateral meniscus tear was debrided with a shaver back to a stable edge, removing approximately one-half of the anterior horn and body. This was carefully probed with no further tearing or instability noted. The knee was copiously irrigated and port sites were closed with 4-0 nylon in simple interrupted fashion. Knee was injected with Duramorph. The port sites were infiltrated with plain Marcaine. A soft dressing was applied and the patient was transferred to the recovery room awake and stable condition. Job ID: [id number] DocumentID: [id number] Dictated Date: 02/14/2023 11:22:59 Order Entry Administrator Date: 02/14/2023 17:23:00 Dictated By: REGGIE GOMES MD
== END 2023-02-14 13:18 | disposition home or self-care (01) ==
LOC: SDC 09:04
PROVIDERS: ATTEND Orthopaedic Surgery
DX: S83.272A Complex tear of lateral meniscus, current injury, left knee, initial encounter (principal); M94.262 Chondromalacia, left knee; Z87.891 Personal history of nicotine dependence
CPT/HCPCS: 87081